=== PATIENT | female | born 1945 | race Caucasian/White ===

== ENCOUNTER → 2018-03-23 14:52 | Outpatient (CLI) | payer MEDICARE, OTHER, SELFPAY ==
--- NOTE | 2018-03-23 | DI.RAD.S_ITS ---
PROCEDURE: XR LUMBAR SPINE 2-3V INDICATIONS: LOW BACK PAIN TECHNIQUE: 3 views of the lumbar spine were acquired. COMPARISON: [facility], , L-SPINE 2-3 VIEWS, 07/12/2015, 3:00. FINDINGS: Bones: 5 [id number] vertebrae are present. There is multilevel trace retrolisthesis throughout the bar spine. Multilevel mild to moderate disc space narrowing is present, appearing severe at L5-S1. Significant foraminal narrowing is present at L5-S1, slowly progressive compared to prior exam.. No vertebral body compression fractures. No suspicious bony lesions. Soft tissues: Overlying bowel gas pattern is normal. No suspicious soft tissue calcifications. IMPRESSION: Slightly progressive degenerative changes most notable at L5-S1. Dictated by: Daysi Squires M.D. on 03/23/2018 at 17:00 Approved by: Daysi Squires M.D. on 03/23/2018 at 17:01
== END ==
PROVIDERS: PCP Family Medicine; Visit Provider Family Medicine
DX: M48.07 Spinal stenosis, lumbosacral region (principal); M54.5 Low back pain
CPT/HCPCS: 72100

== ENCOUNTER → 2018-07-07 15:08 | Outpatient (CLI) | payer MEDICARE, OTHER, SELFPAY ==
--- NOTE | 2018-07-07 | DI.MG.S_ITS ---
BILATERAL DIGITAL SCREENING MAMMOGRAM 3D/2D WITH CAD: 07/07/2018 CLINICAL: Routine screening. Comparison is made to exams dated: 06/15/2017 mammogram, 06/13/2016 mammogram, and 05/08/2015 mammogram - [facility]. The tissue of both breasts is heterogeneously dense. This may lower the sensitivity of mammography. Current study was also evaluated with a Computer Aided Detection (CAD) system. No significant masses, calcifications, or other findings are seen in either breast. There has been no significant interval change. IMPRESSION: NEGATIVE There is no mammographic evidence of malignancy. A 1 year screening mammogram is recommended. This exam was interpreted at Station ID: [id number]. NOTE: For mammograms, a report in lay terms will be sent to the patient. Approximately 15% of breast malignancies will not be visualized mammographically. In the management of a palpable breast mass, a negative mammogram must not discourage biopsy of a clinically suspicious lesion. Electronically Signed By: Yan holly/shauna:07/07/2018 16:03:23 letter sent: Normal Exam ACR BI-RADS Category 1: Negative 3341F
== END ==
PROVIDERS: PCP Family Medicine; Visit Provider Family Medicine
DX: Z12.31 Encounter for screening mammogram for malignant neoplasm of breast (principal)
CPT/HCPCS: 77063; 77067

== ENCOUNTER → 2019-07-12 10:05 | Outpatient (CLI) | payer MEDICARE, OTHER, SELFPAY ==
--- NOTE | 2019-07-12 | DI.MG.S_ITS ---
BILATERAL DIGITAL SCREENING MAMMOGRAM 3D/2D WITH CAD: 07/12/2019 CLINICAL: Routine screening. Comparison is made to exams dated: 07/07/2018 mammogram, 06/15/2017 mammogram, 06/13/2016 mammogram, 05/08/2015 mammogram, and 05/05/2014 mammogram - [facility]. The tissue of both breasts is heterogeneously dense. This may lower the sensitivity of mammography. Current study was also evaluated with a Computer Aided Detection (CAD) system. No significant masses, calcifications, or other findings are seen in either breast. There has been no significant interval change. IMPRESSION: NEGATIVE There is no mammographic evidence of malignancy. A 1 year screening mammogram is recommended. This exam was interpreted at Station ID: [id number]. NOTE: For mammograms, a report in lay terms will be sent to the patient. Approximately 15% of breast malignancies will not be visualized mammographically. In the management of a palpable breast mass, a negative mammogram must not discourage biopsy of a clinically suspicious lesion. Electronically Signed By: Carlos vidal/shauna:07/15/2019 08:26:02 letter sent: Normal Exam ACR BI-RADS Category 1: Negative 3341F
== END ==
PROVIDERS: PCP Family Medicine; Visit Provider Family Medicine
DX: Z12.31 Encounter for screening mammogram for malignant neoplasm of breast (principal); M85.851 Other specified disorders of bone density and structure, right thigh; Z78.0 Asymptomatic menopausal state; E07.9 Disorder of thyroid, unspecified; Z87.891 Personal history of nicotine dependence
CPT/HCPCS: 77063; 77067; 77080

== ENCOUNTER → 2019-11-07 13:41 | Outpatient (CLI) | payer MEDICARE, OTHER, SELFPAY ==
[2019-11-07 14:40] LABS: Add Manual Diff / Slide Review NO; Basophils Absolute Auto 100 /uL (0-100); Basophils Percent Auto 0.8 % (0-2); Eosinophils Absolute Auto 100 /uL (0-450); Eosinophils Percent Auto 2.1 % (2-4); Hemoglobin 13.2 g/dL (12.0-16.0); Lymphocytes Absolute Auto 2200 /uL (1100-4500); Lymphocytes Percent Auto 34.3 % (25-40); Mean Corpuscular HGB Conc 33.1 % (30-36); Mean Corpuscular Hemoglobin 29.4 PG (26-34); Mean Corpuscular Volume 88.8 fL (80-100); Monocytes Absolute Auto 500 /uL (0-900); Monocytes Percent Auto 7.8 % (3-14); Neutrophils Absolute Auto 3500 /uL (1500-7000); Platelet Count 191 X10^3/uL (150-400); Red Cell Distribution Width 13.8 % (11.6-14.8); White Blood Cell Count 6.3 X10^3/uL (4.5-11.0)
[2019-11-07 14:59] LABS: Alanine Aminotransferase 21 IU/L (<35); Albumin 4.2 g/dL (3.5-5.0); Albumin Globulin Ratio 1.5 (1.0-2.8); Alkaline Phosphatase 78 U/L (38-126); Aspartate Aminotransferase 31 IU/L (14-36); BUN Creatinine Ratio 19.6 (6-22); Bilirubin Total 0.5 mg/dL (0.2-1.3); Blood Urea Nitrogen 19 mg/dL (7-17); Calcium 9.1 mg/dL (8.4-10.2); Carbon Dioxide 27 mmol/L (22-32); Chloride 108 mmol/L (98-107); Estimated Glomerular Filt Rate 56.1 mL/min (>60); Globulin 2.8 g/dL (1.7-4.1); Glucose 110 mg/dL (80-110); HEMOLYSIS < 15 (0-50); Potassium 4.5 mmol/L (3.4-5.1); Sodium 142 mmol/L (137-145)
[2019-11-07 15:02] LABS: Erythrocyte Sedimentation Rate 6 MM/HR (0-20)
[2019-11-07 15:11] LABS: C-Reactive Protein Quant < 0.5 mg/dL (<1.0)
== END ==
PROVIDERS: PCP Family Medicine; Referring Provider Ophthalmology; Visit Provider Ophthalmology
DX: M31.6 Other giant cell arteritis (principal); H57.12 Ocular pain, left eye
CPT/HCPCS: 36415; 80053; 84443; 85025; 85651; 86140

== ENCOUNTER → 2019-12-04 16:15 | Outpatient (CLI) | payer MEDICARE, OTHER, SELFPAY ==
[2019-12-05 02:35] LABS: COVID19 Sendout Not Detected (Not Detect)
== END ==
PROVIDERS: PCP Family Medicine; Visit Provider Physician Assistant
DX: Z01.818 Encounter for other preprocedural examination (principal)
CPT/HCPCS: 87635

== ENCOUNTER 2019-12-07 08:25 | Day surgery (SDC) | payer MEDICARE, OTHER, SELFPAY ==
--- NOTE | 2019-12-06 18:02 | PM.PREOP ---
Pre-operative Note Interval Note History & Physical reviewed/Exam performed by Physician: Yes Changes to H&P: No H&P completed within 30 days and has changed as indicated here:: Covid 19 testing negative within 72 hours of surgery
--- NOTE | 2019-12-06 18:03 | P.OP_ITS ---
Operative Date/Time/Diagnoses Date of procedure: 12/07/19 Time of procedure: 09:45 Procedure & Clinicians Procedure: Preoperative diagnoses: 1. Left complex surgery with use of capsular dye. 2. Mature or advanced nuclear sclerotic and cortical cataract with poor visibility of the anterior capsule increasing surgical risks of complications. 3. Glaucoma on multiple medications. 4. Planopilaris 5. Vertigo 6. Psoriasis 7. Status post blepharoplasty Postoperative diagnoses: 1. Left complex surgery with use of capsular dye. 2. Placement of a posterior chamber intraocular lens implant. Surgeon: Lucille Law MD Complications: none Specimen: None Implant: ZCBOO+17.0 Blood loss: None Anesthesia: Retrobulbar with monitored standby. Description of procedure: Dictated by: Lucille Law MD Copy to: [facility] Post operative diagnoses: 1. Left complex cataract removed with use of capsular dye with placement of a posterior chamber intraocular lens. Procedure: Phacoemulsification with posterior chamber intraocular lens implant Surgeon: Lucille Law MD Blood loss: None Anesthesia: Retrobulbar with monitored standby Description of procedure: Patient has presented with decreased vision due to cataract which is affecting activities of daily living. She has advanced cataract with surgery delayed due to the Covid 19 epidemic. She has stable glaucoma with minimal loss in this eye with significant loss in her other. She has tested covered 19-in the last 72 hours. and has no systemic symptoms. The patient wants surgery to improve vision and understands the increased risk surgery during this time. Complex surgery will be needed with capsular dye and a MiLoop used if needed. The patient was taken to the operating room and given IV sedation. A retrobulbar block consisting of 6 cc of 2% xylocaine without epinephrine mixed half and half with 0.5% Marcaine with 1 cc of hyaluronidase added is placed between the medial and lateral 1/3 of the inferior orbital rim.The eye is manually massaged for 30 sec, prepped using Betadine solution, and draped in the usual sterile fashion. She has had previous blepharoplasty and has a very narrow fissure. Lid speculum placement was optimized as much as possible. Temporal approach was made, a 1 mm side-port incision was performed 90 degrees from the planned corneal wound. Phenylephrine 1.5% mixed with 1% xylocaine 0.2 cc was placed into the anterior chamber. An air bubble was placed and Visudyne dye was placed to improve visibility of the anterior capsule. The dye was irrigated out to reduce bubbles. Viscoat followed by Taz was then placed. A 2.6 mm clear incision with a 2.6 mm blade was placed. A 360 degree capsulorrhexis style capsulotomy was then performed with a cystitome needle on a Healon. Hydrodelineation and hydrodissection were performed. No MiLoop was required, patient was somewhat anxious however during procedure seeing she felt like there were answered crawling on her. Small amount of propofol was given to relieve her anxiety. The phacoemulsification unit was used to groove the central lens .It is then removed in chopping mode. Epi nucleus is removed with epinuclear mode and irrigation aspiration was used to remove the peripheral cortex. The posterior capsule is polished. The intraocular lens is selected, inspected, power confirmed, and placed in the posterior chamber. The pupil was constricted with Miostat. The wound was stromally hydrated and tested for leaks, there was none and was left sutureless. Vigamox 0.1 cc was placed into the anterior chamber. No Kenalog 0.2 cc was placed in the superior subconjunc tival space due to advanced glaucoma. A drop of antibiotic and was placed and the eye was patched and shielded. The patient was stable and returned to the recovery room in excellent condition. Dictated by: Lucille Law MD Copy to: [facility] Same procedure as scheduled: Yes
[2019-12-07] MEDS: PROPARACAINE 0.5% OPHTH SOL 2 DROPS EYE-OP (09:26)
[2019-12-07] MEDS: CATARACT EYE COMPOUND (10 DROPS/SYRINGE) 3 DROPS EYE-OP (09:26)
[2019-12-07 09:35] VITALS: BP 144/71; PULSE 54; RESP 16; TEMP 36.1; O2SAT 98; BMI 23.2
[2019-12-07] MEDS: HYALURONATE SODIUM 10 MG/ML SYRINGE INJ (10:21)
[2019-12-07] MEDS: ERYTHROMYCIN OPHTH 1 GM OINT 1 APPLIC EYE-LEFT (10:21)
[2019-12-07] MEDS: CHONDROIDTIN/SOD HYALURONATE 1.05 ML SYRINGE INTRAOCULA (10:21)
[2019-12-07] MEDS: PHENYLEPHRINE/LIDOCAINE VIAL (OR) 0.2 ML EYE-OP (10:22)
[2019-12-07] MEDS: MOXIFLOXACIN INJ 5 MG/ML VIAL EYE-OP (10:22)
[2019-12-07] MEDS: TRYPAN BLUE 0.5 ML SYRINGE INJ (10:23)
[2019-12-07] MEDS: BALANCED SALT IRRIG SOLN NO.2 500 ML, EPINEPHrine 1 MG IRR (10:23)
[2019-12-07] MEDS: LIDOCAINE 2% 4 ML, BUPIVACAINE 0.5% (PF) 4 ML, HYALURONIDASE 150 UNIT INJ (10:23)
[2019-12-07 10:52] VITALS: BP 135/68; PULSE 51; RESP 12; TEMP 36.6; O2SAT 100
[2019-12-07 11:15] VITALS: BP 144/68; PULSE 49; RESP 14; TEMP 36.6; O2SAT 100
== END 2019-12-07 11:27 | disposition home or self-care (01) ==
LOC: OR 08:28
PROVIDERS: PCP Family Medicine; Referring Provider Ophthalmology; Visit Provider Ophthalmology
PROC: (CPT 66982; principal; 2019-12-07 09:45)
DX: H25.812 Combined forms of age-related cataract, left eye (principal); H40.9 Unspecified glaucoma; R42 Dizziness and giddiness
CPT/HCPCS: 66982; J0171; J2250; J2704; J3470

== ENCOUNTER → 2020-09-20 13:58 | Outpatient (CLI) | payer MEDICARE, OTHER, SELFPAY ==
[2020-09-20] MEDS: COVID-19 VACC, Ad26(JANSSEN)/PF 0.5 ML IM (14:24)
== END ==
PROVIDERS: PCP Family Medicine; Visit Provider Internal Medicine
DX: Z23 Encounter for immunization (principal)
CPT/HCPCS: 0031A; 91303

== ENCOUNTER → 2021-06-17 14:53 | Outpatient (CLI) | payer MEDICARE, OTHER, SELFPAY ==
--- NOTE | 2021-06-17 | DI.MG.S_ITS ---
BILATERAL DIGITAL SCREENING MAMMOGRAM 3D/2D WITH CAD: 06/17/2021 CLINICAL: Routine screening. Comparison is made to exams dated: 07/12/2019 mammogram, 07/07/2018 mammogram, and 06/15/2017 mammogram - [facility]. The tissue of both breasts is heterogeneously dense. This may lower the sensitivity of mammography. Current study was also evaluated with a Computer Aided Detection (CAD) system. There are calcifications in the right breast. No significant masses, calcifications, or other findings are seen in either breast. There has been no significant interval change. IMPRESSION: BENIGN There is no mammographic evidence of malignancy. A 1 year screening mammogram is recommended. This exam was interpreted at Station ID: [id number]. NOTE: For mammograms, a report in lay terms will be sent to the patient. Approximately 15% of breast malignancies will not be visualized mammographically. In the management of a palpable breast mass, a negative mammogram must not discourage biopsy of a clinically suspicious lesion. Electronically Signed By: Raj Hawley M.D. at/:06/17/2021 16:38:12 letter sent: Normal Exam ACR BI-RADS Category 2: Benign Finding(s) 3342F
== END ==
PROVIDERS: PCP Family Medicine; Referring Provider Family Medicine; Visit Provider Family Medicine
DX: Z12.31 Encounter for screening mammogram for malignant neoplasm of breast (principal)
CPT/HCPCS: 77063; 77067

== ENCOUNTER → 2022-02-26 10:46 | Outpatient (CLI) | payer MEDICARE, OTHER, SELFPAY ==
--- NOTE | 2022-02-26 | DI.RAD.S_ITS ---
PROCEDURE: XR CERVICAL SPINE 4V OR 5V INDICATIONS: NECK PAIN TECHNIQUE: 5 views of the cervical spine were acquired. COMPARISON: None. FINDINGS: Bones: Reversal of the normal cervical lordosis may be related to muscle spasm. Degenerative disc space narrowing and hypertrophic facet joints noted in the mid cervical spine flexion and extension views shows no evidence segmental instability. Normal craniovertebral relationships. Soft tissues: Prevertebral soft tissues are normal in thickness. IMPRESSION: Degenerative disc disease and arthropathy without evidence of segmental instability Approved by: Higinio Salmon M.D. on 02/26/2022 at 12:41
== END ==
PROVIDERS: PCP Family Medicine; Referring Provider Family Medicine; Visit Provider Family Medicine
DX: M47.812 Spondylosis without myelopathy or radiculopathy, cervical region (principal); M50.30 Other cervical disc degeneration, unspecified cervical region
CPT/HCPCS: 72050

== ENCOUNTER → 2022-03-21 11:38 | Outpatient (CLI) | payer MEDICARE, OTHER, SELFPAY | PROVIDERS: PCP Family Medicine; Referring Provider Family Medicine; Visit Provider Family Medicine | DX: M85.89 Other specified disorders of bone density and structure, multiple sites (principal) | CPT/HCPCS: 77080 ==

== ENCOUNTER → 2022-07-09 13:53 | Outpatient (CLI) | payer MEDICARE, OTHER, SELFPAY ==
--- NOTE | 2022-07-09 | DI.MG.S_ITS ---
BILATERAL DIGITAL SCREENING MAMMOGRAM 3D/2D WITH CAD: 07/09/2022 CLINICAL: Routine screening. Comparison is made to exams dated: 06/17/2021 mammogram, 07/12/2019 mammogram, and 07/07/2018 mammogram - [facility]. Both breasts are heterogeneously dense, which may obscure small masses (category c / 51-75% glandular tissue). Current study was also evaluated with a Computer Aided Detection (CAD) system. There are benign calcifications in the right breast. No significant masses, calcifications, or other findings are seen in either breast. There has been no significant interval change. IMPRESSION: BENIGN There is no mammographic evidence of malignancy. A 1 year screening mammogram is recommended. Based on the Tyrer Cuzick model (a risk assessment model) the patient's lifetime risk is 3.7% and her 10 year risk is 0.0%. According to the ACR, ACS, and NCCN guidelines, an annual breast MRI exam along with mammogram is recommended if the patient's lifetime risk is 20% or greater. This exam was interpreted at Station ID: [id number]. NOTE: For mammograms, a report in lay terms will be sent to the patient. Approximately 15% of breast malignancies will not be visualized mammographically. In the management of a palpable breast mass, a negative mammogram must not discourage biopsy of a clinically suspicious lesion. Electronically Signed By: Rayo Conrad M.D., jr/shauna:07/09/2022 15:53:01 letter sent: Normal Exam ACR BI-RADS Category 2: Benign Finding(s) 3342F
== END ==
PROVIDERS: PCP Family Medicine; Referring Provider Family Medicine; Visit Provider Family Medicine
DX: Z12.31 Encounter for screening mammogram for malignant neoplasm of breast (principal)
CPT/HCPCS: 77063; 77067

== ENCOUNTER → 2023-02-23 15:10 | Outpatient (CLI) | payer MEDICARE, OTHER, SELFPAY ==
--- NOTE | 2023-02-23 | DI.RAD.S_ITS ---
PROCEDURE: XR WRIST LT MIN 3V INDICATIONS: ground level fall, wrist pain TECHNIQUE: 5 views of the wrist were acquired. COMPARISON: [facility], , XR HAND 3V LEFT, 01/16/2001, 8:29. FINDINGS: Bones: There is subtle transverse sclerosis at the distal radius, which is seen on radiograph dating back to 01/16/2001. No acute fracture or dislocation visualized. No suspicious bony lesions. Scaphoid view: Intact Soft tissues: No suspicious soft tissue calcifications. IMPRESSION: No acute osseous abnormality. If pain persists with conservative management, recommend repeat plain films in 7-10 days or consider cross-sectional imaging. Approved by: Linsey Menard M.D. on 02/23/2023 at 23:43
== END ==
PROVIDERS: PCP Family Medicine; Referring Provider Registered Nurse; Visit Provider Registered Nurse
DX: M25.532 Pain in left wrist (principal); M85.80 Other specified disorders of bone density and structure, unspecified site
CPT/HCPCS: 73110

== ENCOUNTER → 2023-07-10 11:06 | Outpatient (CLI) | payer MEDICARE, OTHER, SELFPAY ==
--- NOTE | 2023-07-10 | DI.MG.S_ITS ---
BILATERAL DIGITAL SCREENING MAMMOGRAM 3D/2D WITH CAD: 07/10/2023 CLINICAL: Routine screening. Comparison is made to exams dated: 07/09/2022 mammogram, 06/17/2021 mammogram, and 07/12/2019 mammogram - [facility]. Both breasts are heterogeneously dense, which may obscure small masses (category c / 51-75% glandular tissue). Current study was also evaluated with a Computer Aided Detection (CAD) system. There is an asymmetry in the left breast middle depth medial region seen on the craniocaudal view only. This is more prominent. No other significant masses, calcifications, or other findings are seen in either breast. IMPRESSION: INCOMPLETE: NEEDS ADDITIONAL IMAGING EVALUATION The asymmetry in the left breast is indeterminate. Additional views with possible ultrasound are recommended. Based on the Tyrer Cuzick model (a risk assessment model) the patient's lifetime risk is 3.3% and her 10 year risk is 0.0%. According to the ACR, ACS, and NCCN guidelines, an annual breast MRI exam along with mammogram is recommended if the patient's lifetime risk is 20% or greater. This exam was interpreted at Station ID: [id number]. NOTE: For mammograms, a report in lay terms will be sent to the patient. Approximately 15% of breast malignancies will not be visualized mammographically. In the management of a palpable breast mass, a negative mammogram must not discourage biopsy of a clinically suspicious lesion. Electronically Signed By: Ez Garrett M.D. lc/:07/10/2023 13:00:17 letter sent: Additional Imaging Needed ACR BI-RADS Category 0: Incomplete 3340F
== END ==
LOC: MAMMO 11:07
PROVIDERS: PCP Family Medicine; Referring Provider Family Medicine; Visit Provider Family Medicine
DX: Z12.31 Encounter for screening mammogram for malignant neoplasm of breast (principal)
CPT/HCPCS: 77063; 77067

== ENCOUNTER → 2023-07-31 10:03 | Outpatient (CLI) | payer MEDICARE, OTHER, SELFPAY ==
--- NOTE | 2023-07-31 10:05 | DI.MG.S_ITS ---
UNILATERAL LEFT DIGITAL DIAGNOSTIC MAMMOGRAM 3D/2D WITH ADDITIONAL VIEWS: 07/31/2023 CLINICAL: Additional evaluation requested from prior study. Comparison is made to exams dated: 07/10/2023 mammogram, 07/09/2022 mammogram, and 06/17/2021 mammogram - [facility]. The left breast is heterogeneously dense, which may obscure small masses (category c / 51-75% glandular tissue). The previously described asymmetry in the left breast middle depth medial region seen on the craniocaudal view only is no longer seen. This is not confirmed in today's additional views and is consistent with summation artifact. No other significant masses or calcifications are seen in the breast. IMPRESSION: INCOMPLETE: NEEDS ADDITIONAL IMAGING EVALUATION An ultrasound is recommended to confirm the no longer seen asymmetry in the left breast middle depth medial region seen on the craniocaudal view only. This is scheduled to follow immediately after this exam. Based on the Tyrer Cuzick model (a risk assessment model) the patient's lifetime risk is 3.0% and her 10 year risk is 0.0%. According to the ACR, ACS, and NCCN guidelines, an annual breast MRI exam along with mammogram is recommended if the patient's lifetime risk is 20% or greater. This exam was interpreted at Station ID: [id number]. NOTE: For mammograms, a report in lay terms will be sent to the patient. Approximately 15% of breast malignancies will not be visualized mammographically. In the management of a palpable breast mass, a negative mammogram must not discourage biopsy of a clinically suspicious lesion. Electronically Signed By: Raj Hawley M.D. aty/:07/31/2023 11:31:58 ACR BI-RADS Category 0: Incomplete 3340F
--- NOTE | 2023-07-31 10:05 | DI.US.S_ITS ---
ULTRASOUND OF LEFT BREAST: 07/31/2023 CLINICAL: Patient returns today to evaluate a focal asymmetry in the left breast. Comparison is made to exams dated: 07/31/2023 mammogram, 07/10/2023 mammogram, 07/09/2022 mammogram, and 06/17/2021 mammogram - [facility]. Color flow and real-time ultrasound of the left breast were performed. Junior scale images of the real-time examination were reviewed. No significant abnormalities were seen sonographically in the left breast. IMPRESSION: NEGATIVE There is no sonographic evidence of malignancy. There is no abnormality seen in the left breast to correspond with the mammography finding which likely represents normal fibroglandular tissue. A 1 year screening mammogram is recommended. Findings and recommendations were conveyed to the patient during today's evaluation. This exam was interpreted at Station ID: [id number]. Electronically Signed By: aRj Hawley M.D. aty/:07/31/2023 11:33:25 letter sent: Normal Exam Ultrasound BI-RADS: 1 Negative
== END ==
LOC: MAMMO 10:04
PROVIDERS: PCP Family Medicine; Referring Provider Family Medicine; Visit Provider Family Medicine
DX: R92.8 Other abnormal and inconclusive findings on diagnostic imaging of breast (principal); R92.333 Mammographic heterogeneous density, bilateral breasts
CPT/HCPCS: 76642; 77065; G0279

== ENCOUNTER → 2024-01-30 11:49 | Outpatient (CLI) | payer MEDICARE, OTHER, SELFPAY | PROVIDERS: PCP Family Medicine; Visit Provider Physician Assistant | DX: S89.90XA Unspecified injury of unspecified lower leg, initial encounter (principal); T14.8XXA Other injury of unspecified body region, initial encounter; L08.9 Local infection of the skin and subcutaneous tissue, unspecified | CPT/HCPCS: 87070; 87075; 87077; 87147; 87205 ==

== ENCOUNTER → 2024-01-30 12:19 | Outpatient (CLI) | payer MEDICARE, OTHER, SELFPAY ==
--- NOTE | 2024-01-30 12:21 | DI.RAD.S_ITS ---
PROCEDURE: XR TIBIA FUBULA RT 2V INDICATIONS: fall onto metal walker across shins TECHNIQUE: 2 views of the tibia and fibula were acquired. COMPARISON: None. FINDINGS: Bones: No fractures or dislocations. No suspicious bony lesions. Soft tissues: No suspicious soft tissue calcifications or masses. IMPRESSION: No acute bony abnormality. If there is persistent clinical concern for occult fracture given adequate mechanism of injury, consider repeat imaging in 10-14 days. Dictated by: Raj Hawley M.D. on 01/30/2024 at 22:38 Approved by: Raj Hawley M.D. on 01/30/2024 at 22:38
--- NOTE | 2024-01-30 12:21 | DI.RAD.S_ITS ---
PROCEDURE: XR TIBIA FIBULA LT 2V INDICATIONS: fall onto metal walker across shins TECHNIQUE: 2 views of the tibia and fibula were acquired. COMPARISON: None. FINDINGS: Bones: No fractures or dislocations. No suspicious bony lesions. Soft tissues: No suspicious soft tissue calcifications or masses. IMPRESSION: Left tibia/fibula without acute fracture or dislocation. If there is persistent clinical concern for occult fracture given adequate mechanism of injury, consider repeat imaging in 10-14 days. Dictated by: Raj Hawley M.D. on 01/30/2024 at 22:37 Approved by: Raj Hawley M.D. on 01/30/2024 at 22:38
== END ==
LOC: RAD 12:21
PROVIDERS: PCP Family Medicine; Referring Provider Physician Assistant; Visit Provider Physician Assistant
DX: S89.90XA Unspecified injury of unspecified lower leg, initial encounter (principal); T14.8XXA Other injury of unspecified body region, initial encounter; L08.9 Local infection of the skin and subcutaneous tissue, unspecified; W19.XXXA Unspecified fall, initial encounter
CPT/HCPCS: 73590; 87070; 87077; 87147; 87205

== ENCOUNTER 2024-02-23 17:37 | Emergency (ER) | payer MEDICARE, OTHER, SELFPAY ==
[2024-02-23 17:53] VITALS: BP 158/72; PULSE 82; RESP 17; TEMP 37.1; O2SAT 96; BMI 21.9
--- NOTE | 2024-02-23 19:08 | ED_ITS ---
HPI - Extremity Problem General Chief complaint: Extremity Problem,Nontraumatic Stated complaint: sent by MD for US of rt leg Time Seen by Provider: 02/23/24 18:02 Source: patient, RN notes reviewed and old records reviewed Mode of arrival: Ambulatory Limitations: no limitations History of Present Illness HPI Narrative: 78-year-old female history of hypertension, dyslipidemia hypothyroidism who had recent infection in her left lower extremity was initially on cephalexin but change to what she says as azithromycin for MRSA positive culture but unclear if this is the correct antibiotic. She states she was taking it multiple times a day. I do not have access to the notes that she they changed it to. Patient states her leg did not improve and she has since developed redness and swelling of her right lower extremity with a lesion in the center that looks like it had some bruising underneath. Looks very similar to the opposite leg according to the patient. She has had no fevers, no chest pain or shortness of breath, no nausea or vomiting, no GI symptoms. She has noted some increased urinary frequency.. She states it feels tight and painful. No numbness tingling or weakness. She states allergic to penicillin and tetracyclines. Patient is former smoker, occasional alcohol, no recreational drugs. Dr. Krause is her primary care physician. Related Data Home Medications Medication Instructions Recorded Confirmed amlodipine 5 mg tablet 5 mg PO DAILY 01/30/24 01/30/24 levothyroxine 88 mcg tablet 88 mcg PO DAILY 01/30/24 01/30/24 (Synthroid) Previous Rx's Medication Instructions Recorded atorvastatin 20 mg tablet (Lipitor) 20 mg PO HS #90 tabs 10/07/17 levothyroxine 75 mcg tablet 0.075 mg PO QAM #90 tabs 10/07/17 (Synthroid) mupirocin 2 % topical ointment 1 applic topical TID #30 grams 01/30/24 sulfamethoxazole 800 1 tab PO Q12H #14 tabs 02/23/24 mg-trimethoprim 160 mg tablet (Bactrim DS) Allergies Allergy/AdvReac Type Severity Reaction Status Date / Time Penicillins [PENICILLINS] Allergy Mild ANGIOEDEMA Verified 02/23/24 17:56 Tetracyclines [TETRACYCLINES] Allergy Mild ANGIOEDEMA Verified 02/23/24 17:56 Review of Systems Review of Systems ROS Unobtainable: All systems reviewed & are unremarkable except as noted in HPI and below Patient History Surgical History Status post dilation and curettage Status post tubal ligation Status post cholecystectomy Status post colonoscopy Family History Sister Hypertension High cholesterol Social History household members: spouse Smoking Status: Former smoker alcohol intake: former Smoking Status: Former smoker alcohol intake frequency: holidays/special occasions only Substance Use Type: does not use Exam Narrative Exam Narrative: GENERAL: Alert and oriented x three, well-appearing female in mild distress. HEENT: Head normocephalic, atraumatic, EOMI, pupils reactive, face symmetric, moist mucous membranes NECK: Supple, full range of motion CARDIOVASCULAR: Regular rate and rhythm without murmurs, rubs or gallops. RESPIRATORY: Breath sounds equal bilaterally, no wheezes rales or rhonchi. ABDOMEN: Soft, nontender. Normoactive bowel sounds all 4 quadrants. No guarding or rebound, rigidity, no mass : No CVA tenderness EXTREMITIES: Normal range of motion, no clubbing. Patient has erythema of the calf surrounding with area of ulceration and slightly gapped, there is some slight swelling and induration but no drainage. There is no foul odor. Patient has cap refill less than 2 seconds bilateral feet. She has full range of motion. She is able to ambulate without issue.. Neurovascularly intact NEUROLOGICAL: Cranial nerves II through XII grossly intact. Moving all extremities SKIN: Warm, dry, no petechiae, no rashes or lesions. Initial Vital Signs Initial Vital Signs: Vital Signs Temperature 98.7 F 02/23/24 17:53 Pulse Rate 82 02/23/24 17:53 Respiratory Rate 17 02/23/24 17:53 Blood Pressure 158/72 H 02/23/24 17:53 Pulse Oximetry 96 02/23/24 17:53 Oxygen Delivery Method Room Air 02/23/24 17:53 Procedures Abscess I/D I&D #1: Site: lower extremity (right anterior richardson) Side (if applicable): right Sedation/analgesia: midazolam and none Local Anesthetic: lidocaine 2% Amount of anesthesia used (mL): 2.5 Technique: needle aspiration and incised with #11 blade Amount of fluid expressed (mL): 4 Irrigation: Yes Packing used?: none Course Orders Ordered: Discontinued Medications Lidocaine HCl (Lidocaine 2% Inj Sdv 5ml) 10 ml INJ INTRA-OP ONE Stop: 02/23/24 20:45 Last Admin: 02/23/24 20:54 Dose: 10 ml Documented By: ALISSON Trimethoprim/Sulfamethoxazole (Trimeth/Sulfa 160/800 (Ds) Tablet) 1 tab PO NOW ONE Stop: 02/23/24 20:44 Last Admin: 02/23/24 20:54 Dose: 1 tab Documented By: ALISSON Vital Signs Vital signs: Vital Signs - 8 hr 02/23/24 17:53 02/23/24 20:44 Temperature 98.7 F Pulse Rate 82 80 Respiratory Rate 17 17 Blood Pressure 158/72 H 145/67 H Pulse Oximetry 96 95 Oxygen Delivery Method Room Air MDM - Extremity (Nontraumatic) Lab Data Labs: Urine Dip Bedside Urine Glucose Negative Bedside Urine Bilirubin - Negative Bedside Urine Ketone - Negative Urine Specific [place] 1.015 Bedside Urine Occult Blood - Negative Bedside Urine pH 6.0 Bedside Urine Protein - Negative Bedside Urine Urobilinogen - Negative Bedside Urine Nitrite - Negative Bedside Urine Leukocytes - Negative Esterase Imaging Data US - DVT: Radiologist's Impression: [place] [address] Ultrasound Report Signed Patient: Sydni Onofre MR#: [id number] : 1945 Acct:[id number] Age/Sex: 78 / F Date of Service: 02/23/24 Loc: ED Accession Number: [id number] Procedure: US perip venous low extrem rt Ordering Provider: Digna Godinez D.O. PROCEDURE: US PERIP VENOUS LOW EXTREM RT INDICATIONS: r/o dvt. TECHNIQUE: Real-time imaging, as well as color and pulse Doppler interrogation, were performed of the lower extremity deep veins from the inguinal ligament to the popliteal fossa, with documentation of the visualized calf veins. COMPARISON: None. FINDINGS: The common femoral, femoral, popliteal, and the visualized calf veins are normally compressible, and free of intraluminal thrombus. Color and pulse Doppler demonstrate normal phasic intraluminal flow. There is normal augmentation response to distal compression maneuver. Fluid collection or hematoma at the richardson measuring 5.1 x 2.3 x 1.1 cm, estimated volume of 7 cc. IMPRESSION: No findings of lower extremity deep venous thrombosis. Fluid collection or hematoma at the richardson measuring 5.1 cm and approximately 7 cc. Dictated by: Carlos De Dios M.D. on 02/23/2024 at 20:05 Approved by: Carlos De Dios M.D. on 02/23/2024 at 20:07 [facility] Narrative Medical decision making narrative: 78-year-old female with what looks like likely cellulitis but was sent by primary care for ultrasound to rule out DVT. Patient does have circumferential erythema of her right lower extremity greater than left. Appears she likely has a source of infection with wound but we will go ahead and obtain DVT ultrasound which shows Patient has also had frequency that is new no other urinary symptoms but obtained point of care urine. Point of care urine negative DVT ultrasound is negative for DVT does have fluid collection most consistent with hematoma. Patient had culture from her opposite leg that showed MRSA 7 2023 this was reviewed. We will start patient on Bactrim based on prior patient's prior sensitivities and cultures from her opposite leg. Patient has a appropriate renal function. Patient had I&D had a small amount of purulent drainage culture was sent. Discharge Plan Departure Patient Disposition: Home Clinical Impression: Cellulitis and abscess of right leg Instructions: DI for Skin Abscess Activity Restrictions/Additional Instructions: Please follow up at your appointment on with your provider. Take oral antibiotics until completed. Prescription sent to [facility] in [facility]. Wound Care: Keep wound(s) clean and dry. Wash daily with soap and water only. Use warm compresses to the affected area 4 times daily. Do not use over the counter products (alcohol or peroxide)on the wounds unless instructed by a physician. Please return for fevers increasing redness or swelling of your leg, new drainage, increasing pain, chest pain or shortness of breath, persistent vomiti ng or other new or concerning changes. Prescriptions: New sulfamethoxazole-trimethoprim [Bactrim DS] 800-160 mg tablet 1 tab PO Q12H Qty: 14 0RF No Action amlodipine 5 mg tablet 5 mg PO DAILY levothyroxine [Synthroid] 88 mcg tablet 88 mcg PO DAILY mupirocin 2 % ointment 1 applic topical TID Qty: 30 0RF atorvastatin [Lipitor] 20 MG tablet 20 mg PO HS Qty: 90 3RF levothyroxine [Synthroid] 75 MCG tablet 0.075 mg PO QAM Qty: 90 3RF Referrals: Alcides Krause MD [Primary Care Provider] - Stand Alone Forms: Patient Portal/API
--- NOTE | 2024-02-23 19:18 | DI.US.S_ITS ---
PROCEDURE: US PERIPH VENOUS LOW EXTREM RT INDICATIONS: r/o dvt. TECHNIQUE: Real-time imaging, as well as color and pulse Doppler interrogation, were performed of the lower extremity deep veins from the inguinal ligament to the popliteal fossa, with documentation of the visualized calf veins. COMPARISON: None. FINDINGS: The common femoral, femoral, popliteal, and the visualized calf veins are normally compressible, and free of intraluminal thrombus. Color and pulse Doppler demonstrate normal phasic intraluminal flow. There is normal augmentation response to distal compression maneuver. Fluid collection or hematoma at the richardson measuring 5.1 x 2.3 x 1.1 cm, estimated volume of 7 cc. IMPRESSION: No findings of lower extremity deep venous thrombosis. Fluid collection or hematoma at the richardson measuring 5.1 cm and approximately 7 cc. Dictated by: Carlos De Dios M.D. on 02/23/2024 at 20:05 Approved by: Carlos De Dios M.D. on 02/23/2024 at 20:07
--- NOTE | 2024-02-23 19:18 | PC.NURSE ---
left lower leg redness w/ wound. hx of mrsa. pcp concern for dvt
[2024-02-23 20:44] VITALS: BP 145/67; PULSE 80; RESP 17; O2SAT 95
[2024-02-23] MEDS: TRIMETH/SULFA 160/800 (DS) TABLET 1 TAB PO (20:54)
[2024-02-23] MEDS: LIDOCAINE 2% INJ SDV 5ML 10 ML INJ (20:54)
--- NOTE | 2024-02-23 21:05 | PC.NURSE ---
Dressing applied to LLE wound and pt instructed in wound care. Pt verbalized understanding.
== END 2024-02-23 21:07 | disposition home or self-care (01) ==
PROVIDERS: Emergency Provider Emergency Medicine; PCP Family Medicine
DX: L03.115 Cellulitis of right lower limb (principal); L02.415 Cutaneous abscess of right lower limb
CPT/HCPCS: 81003; 87070; 87075; 87205; 93971; 99283

== ENCOUNTER 2024-02-24 17:07 | Inpatient (IN) | payer MEDICARE, OTHER, SELFPAY ==
[2024-02-24] VITALS (33 sets, daily range): BP systolic 90–115; BP diastolic 44–58; PULSE 76–187; RESP 22–34; TEMP 37–38.6; O2SAT 82–100; BMI 21.4; BMI 22.4
[2024-02-24] MEDS: SODIUM CHLORIDE 0.9% 1,000 ML 1000 ML IV ×2 (17:10→18:09)
--- NOTE | 2024-02-24 17:19 | DI.RAD.S_ITS ---
PROCEDURE: XR CHEST 1V INDICATIONS: suspected sepsis TECHNIQUE: One view of the chest was acquired. COMPARISON: None. FINDINGS: Surgical changes and devices: None. Lungs and pleura: Mild left basilar atelectasis versus opacity. No pleural effusions or pneumothorax. Mediastinum: Mediastinal contours appear normal. Heart size is normal. Bones and chest wall: No suspicious bony lesions. Overlying soft tissues appear unremarkable. IMPRESSION: Mild left basilar atelectasis versus opacity. Dictated by: Noah Dean M.D. on 02/24/2024 at 18:22 Approved by: Noah Dean M.D. on 02/24/2024 at 18:23
[2024-02-24 17:28] LABS: Add Manual Diff / Slide Review NO; Basophils Absolute Auto 200 /uL (0-100); Basophils Percent Auto 1.4 % (0-2); Eosinophils Absolute Auto 0 /uL (0-450); Eosinophils Percent Auto 0.1 % (2-4); Hematocrit 35.6 % (36-46); Hemoglobin 11.9 g/dL (12.0-16.0); Lymphocytes Absolute Auto 700 /uL (1100-4500); Lymphocytes Percent Auto 4.5 % (25-40); Mean Corpuscular HGB Conc 33.4 % (30-36); Mean Corpuscular Hemoglobin 29.1 PG (26-34); Mean Corpuscular Volume 87.3 fL (80-100); Monocytes Absolute Auto 800 /uL (0-900); Monocytes Percent Auto 5.4 % (3-14); Neutrophils Absolute Auto 13000 /uL (1500-7000); Neutrophils Percent Auto 88.6 % (50-75); Platelet Count 185 X10^3/uL (150-400); Red Blood Cell Count 4.07 X10^6/uL (4.0-5.2); Red Cell Distribution Width 15.5 % (11.6-14.8); White Blood Cell Count 14.6 X10^3/uL (4.5-11.0)
[2024-02-24 17:30] LABS: INR 1.1 (0.9-1.3); Prothrombin Time 12.5 SECONDS (9.4-12.5)
--- NOTE | 2024-02-24 17:31 | EKG_ITS ---
[address] [address] Test Date: 2024-02-24 Pat Name: Sydni Onofre Department: [facility] Room: Gender: Female Hosted Services Analyst: ELOY : 1945 Requested By: Order Number: [id number] Reading MD: Carson Moran MD Measurements Intervals [place] Rate: 85 P: 35 IA: 152 QRS: 59 QRSD: 78 T: 35 QT: 400 QTc: 476 Interpretive Statements Normal sinus rhythm Electronically Signed On 02-25-2024 7:38:31 PDT by Carson Moran MD
[2024-02-24 17:33] LABS: PTT Partial Thromboplastin Tim 28 SECONDS (25.1-36.5)
[2024-02-24 17:34] LABS: Alanine Aminotransferase 29 IU/L (<35); Albumin 3.7 g/dL (3.5-5.0); Albumin Globulin Ratio 1.2 (1.0-2.8); Alkaline Phosphatase 77 U/L (38-126); Aspartate Aminotransferase 31 IU/L (14-36); BUN Creatinine Ratio 15.8 (6-22); Bilirubin Total 0.8 mg/dL (0.2-1.3); Blood Urea Nitrogen 18 mg/dL (7-17); Calcium 8.2 mg/dL (8.4-10.2); Carbon Dioxide 22 mmol/L (22-32); Chloride 103 mmol/L (98-107); Estimated Glomerular Filt Rate 49 mL/min (>60); Globulin 3.1 g/dL (1.7-4.1); Glucose 113 mg/dL (80-110); HEMOLYSIS < 15 (0-50); Lipase 81 U/L (23-300); Potassium 3.7 mmol/L (3.4-5.1); Sodium 133 mmol/L (137-145); Total Protein 6.8 g/dL (6.3-8.2)
[2024-02-24 17:51] LABS: Procalcitonin 0.365 ng/mL (<0.5)
[2024-02-24] MEDS: VANCOMYCIN 1,000 MG/200 ML PIGGYBACK 200 MG IV (18:07)
[2024-02-24 18:13] LABS: Influenza A - CEPHEID Flu A NEGATIVE (NEGATIVE); Influenza B - CEPHEID Flu B NEGATIVE (NEGATIVE); Respiratory Syncytial Virus Negative (Negative)
[2024-02-24 18:16] LABS: COVID-19 CEPHEID 4-PLEX PCR Negative (Negative)
--- NOTE | 2024-02-24 19:02 | ED_ITS ---
HPI - General Adult General Chief complaint: Weakness Stated complaint: DX Cellulitis yest. Increase weakness, fever Time Seen by Provider: 02/24/24 18:55 Source: patient, EMS and RN notes reviewed Mode of arrival: EMS Limitations: no limitations History of Present Illness HPI narrative: 76-year-old male history of hypertension, dyslipidemia, hypothyroidism who had recent infection in her left lower extremity patient was seen last night after having developed redness and swelling and an area of what looks like hematoma or ulceration on her anterior richardosn on the right. Patient has been sent to have evaluation for DVT which was negative and was started on oral antibiotics last night. Patient presents with complaint of chills overnight increasing weakness and fevers at home. No chest pain or shortness of breath, no nausea or vomiting. No abdominal back or flank pain, denies any urinary symptoms. Patient states her leg as less painful after the abscess drainage but she still has quite a bit of erythema and on examination appears to have spread. She has had 2 doses of Bactrim 1 last night and 1 this morning. Patient states no other new changes. She does have allergies to penicillin and tetracycline. Former smoker, occasional alcohol, no recreational drugs. Dr. Krause is her primary care physician. Related Data Home Medications Medication Instructions Recorded Confirmed amlodipine 5 mg tablet 5 mg PO DAILY 01/30/24 01/30/24 levothyroxine 88 mcg tablet 88 mcg PO DAILY 01/30/24 01/30/24 (Synthroid) Previous Rx's Medication Instructions Recorded atorvastatin 20 mg tablet (Lipitor) 20 mg PO HS #90 tabs 10/07/17 levothyroxine 75 mcg tablet 0.075 mg PO QAM #90 tabs 10/07/17 (Synthroid) mupirocin 2 % topical ointment 1 applic topical TID #30 grams 01/30/24 sulfamethoxazole 800 1 tab PO Q12H #14 tabs 02/23/24 mg-trimethoprim 160 mg tablet (Bactrim DS) Allergies Allergy/AdvReac Type Severity Reaction Status Date / Time Penicillins [PENICILLINS] Allergy Mild ANGIOEDEMA Verified 02/24/24 17:14 Tetracyclines [TETRACYCLINES] Allergy Mild ANGIOEDEMA Verified 02/24/24 17:14 Review of Systems Review of Systems ROS Unobtainable: All systems reviewed & are unremarkable except as noted in HPI and below Patient History Surgical History Status post dilation and curettage Status post tubal ligation Status post cholecystectomy Status post colonoscopy Family History Sister Hypertension High cholesterol Social History household members: spouse Smoking Status: Former smoker alcohol intake: former Smoking Status: Former smoker alcohol intake frequency: holidays/special occasions only Substance Use Type: does not use Exam Narrative Exam Narrative: GENERAL: Alert and oriented x three, elderly female in mild distress. Patient feels slightly warm to the touch. HEENT: Head normocephalic, atraumatic, EOMI, pupils reactive, face symmetric, moist mucous membranes NECK: Supple, full range of motion CARDIOVASCULAR: Regular rate and rhythm without murmurs, rubs or gallops. JVD. RESPIRATORY: Breath sounds equal bilaterally, no wheezes rales or rhonchi. No tachypnea accessory muscle use ABDOMEN: Soft, nontender. Normoactive bowel sounds all 4 quadrants. No guarding or rebound, rigidity, no mass : No CVA tenderness EXTREMITIES: Normal range of motion, patient has edema of the right lower extremity it is very warm compared to the left. Her area of drainage from her abscess has very minimal to scant drainage. She states it feels improved I erythema appears to be extended farther up the leg and over the dorsum of her foot from her visit last night when I saw her last.. Neurovascularly intact NEUROLOGICAL: Cranial nerves II through XII grossly intact. Moving all extremities SKIN: Warm, dry, no petechiae, no rashes or lesions other than to healing ulcers on her left anterior richardson which are clean dry and intact and do not appear infected. Initial Vital Signs Initial Vital Signs: Vital Signs Temperature 98.6 F 02/24/24 17:07 Pulse Rate 85 02/24/24 17:07 Respiratory Rate 26 H 02/24/24 17:07 Blood Pressure 115/58 L 02/24/24 17:07 Pulse Oximetry 99 02/24/24 17:07 Oxygen Delivery Method Room Air 02/24/24 17:07 Course Orders Ordered: ED Orders 02/24/24 17:00 Complete Blood Count AUTO DIFF Stat Comprehensive Metabolic Panel Stat Lactate (Lactic Acid) Stat Lipase Stat PTT Partial Thromboplastin Jayesh Stat Procalcitonin Stat Prothrombin Time INR Stat 02/24/24 17:19 XR chest 1V Stat EKG-12 Lead Stat RT Consult Eval and Treat NOW 02/24/24 17:26 Covid-19 + FLU A/B + RSV - PCR Stat 02/24/24 17:31 Blood Culture Stat Acetaminophen (Acetaminophen 325 Mg Tablet) 650 mg PO Q6H PRN PRN Reason: Fever/Mild Pain (1-3) Al Hydrox/Mg Hydrox/Simethicone (Mag Hydrox/Alum/Simeth 30 Ml Udc) 30 ml PO Q6HR PRN PRN Reason: Dyspepsia Amlodipine Besylate (Amlodipine 5 Mg Tablet) 5 mg PO DAILY [place] Atorvastatin Calcium (Atorvastatin 20 Mg Tablet) 20 mg PO HS PALOMA Enoxaparin Sodium (Enoxaparin 40 Mg/0.4 Ml Syringe) 40 mg SUBCUT DAILY [place] Sodium Chloride (Normal Saline 0.9%) 1,000 mls @ 150 mls/hr IV CONT PALOMA Last Admin: 02/24/24 19:54 Dose: 150 mls/hr Documented By: DOMINIC Sodium Chloride (Normal Saline 0.9%) 1,000 mls @ 100 mls/hr IV CONT PALOMA Levothyroxine Sodium (Levothyroxine 75 Mcg Tablet) 75 mcg PO QAM [place] Magnesium Hydroxide (Magnesium Hydroxide 30 Ml Udc) 30 ml PO DAILY PRN PRN Reason: Constipation Naloxone HCl (Naloxone 0.4 Mg/Ml Vial) 0.2 mg IV Q2MIN PRN PRN Reason: Opiate Reversal Ondansetron HCl (Ondansetron 4 Mg/2 Ml Inj) 4 mg IV NOW PRN PRN Reason: Nausea And Vomiting Ondansetron HCl (Ondansetron 4 Mg Odt) 4 mg SL NOW PRN PRN Reason: Nausea And Vomiting Ondansetron HCl (Ondansetron 4 Mg/2 Ml Inj) 4 mg IV Q8HR PRN PRN Reason: Nausea And Vomiting Vancomycin HCl (Vancomycin Per Pharmacy) 1 request MISC NOW PRN PRN Reason: cellulits Discontinued Medications Sodium Chloride (Normal Saline 0.9%) 1,000 mls @ 1,000 mls/hr IV BOLUS ONE Stop: 02/24/24 18:18 Last Infusion: 02/24/24 17:46 Dose: Infused Documented By: Admin: 02/24/24 17:10 Dose: 1,000 mls/hr Documented By: DOMINIC Sodium Chloride (Normal Saline 0.9%) 1,000 mls @ 1,000 mls/hr IV BOLUS ONE Stop: 02/24/24 18:47 Last Infusion: 02/24/24 19:06 Dose: Infused Documented By: Admin: 02/24/24 18:09 Dose: 1,000 mls/hr Documented By: REBEKAH Vancomycin HCl/Dextrose (Vancomycin) 2,000 mg in 400 mls @ 200 mls/hr IV NOW ONE Stop: 02/24/24 19:53 Last Admin: 02/24/24 18:30 Dose: Not Given Documented By: DOMINIC Vancomycin HCl (Vancomycin) 1,000 mg in 200 mls @ 200 mls/hr IV NOW ONE Stop: 02/24/24 18:54 Last Infusion: 02/24/24 19:06 Dose: Infused Documented By: Admin: 02/24/24 18:07 Dose: 200 mls/hr Documented By: REBEKAH Sodium Chloride (Normal Saline 0.9%) 500 mls @ 1,000 mls/hr IV BOLUS ONE Stop: 02/24/24 20:02 Last Infusion: 02/24/24 20:16 Dose: Infused Documented By: Admin: 02/24/24 19:42 Dose: 1,000 mls/hr Documented By: DOMINIC Vital Signs Vital signs: Vital Signs - 8 hr 02/24/24 17:07 02/24/24 17:10 02/24/24 17:11 Temperature 98.6 F Pulse Rate 85 187 H 87 Respiratory Rate 26 H 33 H 34 H Blood Pressure 115/58 L Pulse Oximetry 99 97 Oxygen Delivery Method Room Air 02/24/24 17:11 02/24/24 17:15 02/24/24 17:30 Temperature Pulse Rate 80 86 Respiratory Rate 27 H 30 H Blood Pressure 115/58 L Pulse Oximetry 99 82 L Oxygen Delivery Method Room Air 02/24/24 17:36 02/24/24 17:36 02/24/24 17:39 Temperature Pulse Rate 85 Respiratory Rate 28 H Blood Pressure 91/49 L 92/53 L Pulse Oximetry 97 Oxygen Delivery Method 02/24/24 17:39 02/24/24 17:40 02/24/24 17:40 Temperature Pulse Rate 81 80 Respiratory Rate 27 H 30 H Blood Pressure 94/47 L Pulse Oximetry 99 99 Oxygen Delivery Method 02/24/24 17:42 02/24/24 17:42 02/24/24 17:45 Temperature Pulse Rate 81 81 Respiratory Rate 30 H 23 Blood Pressure 95/46 L Pulse Oximetry 100 97 Oxygen Delivery Method Room Air 02/24/24 18:00 02/24/24 18:01 02/24/24 18:01 Temperature Pulse Rate 81 83 Respiratory Rate 28 H 30 H Blood Pressure 95/52 L Pulse Oximetry 93 Oxygen Delivery Method 02/24/24 18:15 02/24/24 18:20 02/24/24 18:20 Temperature Pulse Rate 82 80 Respiratory Rate 26 H 30 H Blood Pressure 98/51 L Pulse Oximetry 95 95 Oxygen Delivery Method Room Air 02/24/24 18:30 02/24/24 18:40 02/24/24 18:40 Temperature Pulse Rate 79 76 Respiratory Rate 27 H 28 H Blood Pressure 99/52 L Pulse Oximetry 95 96 Oxygen Delivery Method Room Air Room Air 02/24/24 18:45 02/24/24 19:00 02/24/24 19:00 Temperature Pulse Rate 77 77 Respiratory Rate 28 H 27 H Blood Pressure 108/53 L Pulse Oximetry 94 95 Oxygen Delivery Method Room Air 02/24/24 19:15 02/24/24 19:20 02/24/24 19:20 Temperature Pulse Rate 85 80 Respiratory Rate 28 H 29 H Blood Pressure 93/44 L Pulse Oximetry 95 95 Oxygen Delivery Method Medical Decision Making Lab Data 02/24/24 17:00 02/24/24 17:00 Labs: Lab Results 02/24/24 02/24/24 Range/Units 17:00 17:26 WBC 14.6 H (4.5-11.0) X10^3/uL RBC 4.07 (4.0-5.2) X10^6/uL Hgb 11.9 L (12.0-16.0) g/dL Hct 35.6 L (36-46) % MCV 87.3 (80-100) fL MCH 29.1 (26-34) PG MCHC 33.4 (30-36) % RDW 15.5 H (11.6-14.8) % Plt Count 185 (150-400) X10^3/uL Neut % (Auto) 88.6 H (50-75) % Lymph % (Auto) 4.5 L (25-40) % [place] % (Auto) 5.4 (3-14) % Eos % (Auto) 0.1 L (2-4) % Baso % (Auto) 1.4 (0-2) % Neut # (Auto) 75600 H (1273-1417) /uL Lymph # (Auto) 700 L (4985-6630) /uL [place] # (Auto) 800 (0-900) /uL Eos # (Auto) 0 (0-450) /uL Baso # (Auto) 200 H (0-100) /uL PT 12.5 (9.4-12.5) SECONDS INR 1.1 (0.9-1.3) APTT 28 (25.1-36.5) SECONDS Sodium 133 L (137-145) mmol/L Potassium 3.7 (3.4-5.1) mmol/L Chloride 103 (98-107) mmol/L Carbon Dioxide 22 (22-32) mmol/L BUN 18 H (7-17) mg/dL Creatinine 1.14 H (0.52-1.04) mg/dL Estimated GFR 49 L (>60) mL/min BUN/Creatinine Ratio 15.8 (6-22) Glucose 113 H (80-110) mg/dL Lactate 2.0 (0.7-2.1) mmol/L Calcium 8.2 L (8.4-10.2) mg/dL Total Bilirubin 0.8 (0.2-1.3) mg/dL AST 31 (14-36) IU/L ALT 29 (<35) IU/L Alkaline Phosphatase 77 (38-126) U/L Total Protein 6.8 (6.3-8.2) g/dL Albumin 3.7 (3.5-5.0) g/dL Globulin 3.1 (1.7-4.1) g/dL Albumin/Globulin Ratio 1.2 (1.0-2.8) Lipase 81 (23-300) U/L Procalcitonin 0.365 (<0.5) ng/mL SARS-CoV-2 (PCR) Negative (Negative) Influenza A (RT-PCR) Flu a negative (NEGATIVE) Influenza B (RT-PCR) Flu b negative (NEGATIVE) RSV (PCR) Negative (Negative) MDM Narrative Medical decision making narrative: Labs today show white count of 14.6, hemoglobin 11.9 platelets of 185 predominance of neutrophils, no prior labs since 2019 but at that time patient's hemoglobin was 13. Coags are negative, sodium is 133. Creatinine 3.7, chloride 103 with a CO2 of 22 and a BUN 18 with a creatinine of 1.14 glucose is 113 lactate 2 LFTs are negative. Procalcitonin 0.365. Patient has blood cultures obtained today. Patient does have a wound culture from yesterday shows no cells or organisms on initial Gram stain. Culture is pending. Patient did have abscess yesterday that was drained with a few mL of purulent fluid. Patient had DVT ultrasound which was negative yesterday did show a fluid collection which was drained yesterday by myself. Patient has been slightly tachypneic, hypotensive, no tachycardia but blood pressure is lower than her visit yesterday. Patient meets SIRS criteria for sepsis. Has received 30 cc/kilos bolus, started with antibiotics based on patient's prior culture from the opposite leg. Today's culture has not resulted yet. Patient has received fluid bolus as well as vancomycin. Spoke with Dr. Krause who accepts for inpatient we will put in orders. Discharge Plan Departure Patient Disposition: Admitted As Inpatient Clinical Impression: Cellulitis and abscess of right leg, Sepsis Admit Date/Time: 02/24/24 19:27 Admit Provider: Alcides Krause
[2024-02-24] MEDS: SODIUM CHLORIDE 0.9% 500 ML 1000 ML IV (19:42)
[2024-02-24] MEDS: SODIUM CHLORIDE 0.9% 1,000 ML 150 ML IV (19:54)
[2024-02-24 20:31] LABS: RBC Urine None Seen (0-5/HPF); Urine Volume 10mL (spun)
[2024-02-24 20:32] LABS: Bacteria Urine Occasional (0-1); Culture Indicated Urine Cult Not Indicated; Squamous Epithelial Cell Urine 0-1 /HPF (0-5/HPF); WBC Urine 0-1/HPF (0-5/HPF)
[2024-02-24] MEDS: SODIUM CHLORIDE 0.9% 1,000 ML 100 ML IV (21:00)
[2024-02-24] MEDS: ACETAMINOPHEN 325 MG TABLET 650 MG PO (22:34)
[2024-02-24] MEDS: diphenhydrAMINE 25 MG TABLET 50 MG PO (22:35)
[2024-02-24 23:09] LABS: MRSA (Nasal) PCR NOT DETECTED (Not Detect)
[2024-02-25] VITALS (20 sets, daily range): BP systolic 85–129; BP diastolic 49–60; PULSE 66–76; RESP 14–38; TEMP 36.5–38.1; O2SAT 91–98
--- NOTE | 2024-02-25 04:43 | PC.NURSE ---
Arrived from the ED where she received a first dose of vancomycin. Pt was flushed with a hot red rash across chest and back along with a new temp of 101.3c - Dr. Krause notified of possible allergic reaction to vanco and antiobiotics were switched to clindamycin. Pt was given tylenol and benadryl with good response. Dressing on R richardson changed, leg red, swollen, and warm to touch.
[2024-02-25 05:02] LABS: Hematocrit 32.5 % (36-46); Mean Corpuscular HGB Conc 33.9 % (30-36); Mean Corpuscular Hemoglobin 30.1 PG (26-34); Mean Corpuscular Volume 88.8 fL (80-100); Platelet Count 130 X10^3/uL (150-400); Red Blood Cell Count 3.66 X10^6/uL (4.0-5.2); Red Cell Distribution Width 15.9 % (11.6-14.8); White Blood Cell Count 9.6 X10^3/uL (4.5-11.0)
[2024-02-25 05:08] LABS: Add Manual Diff / Slide Review YES
[2024-02-25 05:11] LABS: Alanine Aminotransferase 26 IU/L (<35); Albumin 2.9 g/dL (3.5-5.0); Albumin Globulin Ratio 1.1 (1.0-2.8); Alkaline Phosphatase 58 U/L (38-126); Aspartate Aminotransferase 31 IU/L (14-36); BUN Creatinine Ratio 16.7 (6-22); Bilirubin Total 0.5 mg/dL (0.2-1.3); Blood Urea Nitrogen 15 mg/dL (7-17); Calcium 7.2 mg/dL (8.4-10.2); Carbon Dioxide 17 mmol/L (22-32); Chloride 111 mmol/L (98-107); Estimated Glomerular Filt Rate > 60 mL/min (>60); Globulin 2.6 g/dL (1.7-4.1); Glucose 85 mg/dL (80-110); HEMOLYSIS < 15 (0-50); Potassium 3.5 mmol/L (3.4-5.1); Sodium 134 mmol/L (137-145); Total Protein 5.5 g/dL (6.3-8.2)
[2024-02-25 05:28] LABS: Neutrophils Absolute Manual 8448 /uL (3000-5900); Total Cells Counted 100
[2024-02-25 05:29] LABS: RBC Morphology Normal Morphology
[2024-02-25] MEDS: SODIUM CHLORIDE 0.9% 1,000 ML 100 ML IV ×2 (05:42→16:34)
[2024-02-25] MEDS: LEVOTHYROXINE 75 MCG TABLET PO (07:49)
[2024-02-25] MEDS: AMLODIPINE 5 MG TABLET PO (09:19)
[2024-02-25] MEDS: ENOXAPARIN 40 MG/0.4 ML SYRINGE SUBCUT (09:19)
--- NOTE | 2024-02-25 11:29 | CM.DANOTE ---
Initial DCP Assessment Note Pt is a 78 yo female, resident of [facility] with LE cellulitis, presents with persistent fever, weakness, LE redness/swelling. PCP: Alcides Krause Payer: [facility]/[place] Reviewed chart, met w/patient to introduce self and role. Patient reports she is indp in ADLs although recently has found them more difficult since she has not felt well. No hx of HH or SNF. Patient's 90 yo spouse was admitted to the hospital 02/20 and discharged yesterday 02/23, patient's sister in law is caring for spouse. Patient denies needs from this CM team, says her two daughters are nurses and her next door neighbor is a nurse and will help as needed. No barriers identified at this time to patient's safe discharge home w/family to assist; close outpatient f/u recommended. CM team will plan to follow clinical course closely in case any DC needs or concerns arise. TYE Marley Discharge Planning/Care Management CM Discharge Assessment Start: 02/25/24 11:23 Freq: Status: Active Protocol: Document 02/25/24 11:23 NABEEL (Rec: 02/25/24 11:28 NABEEL [id number]) Discharge Planning Assessment Assigned Cell Tender TYE Torres DPOA/Assigned Designee Name Carson Onofre, spouse Contact Information [phone] Advance Directives? Yes: , HC Directive Advance Directives on File Yes History Provided By Patient,Medical Record Prior Living Arrangements House Household Members spouse Type of transporation used prior to Drives own vehicle admit Independent with ADL's Yes Is patient alert and oriented? Yes Caregiver for Another Yes: Spouse Carson Comment TBD Discharge Plan Home Transportation Arrangement Family Additional Comment TBD. Will plan to follow for any DC needs or concerns that may arise.
--- NOTE | 2024-02-25 12:20 | PT.IIE ---
Surgical History (Last Reviewed 02/24/24 @ 19:13 by Digna Godinez DO) Status post cholecystectomy Status post colonoscopy Status post dilation and curettage Status post tubal ligation Physical Therapy Inpatient Evaluation/Re-Eval M1 PT/OT-IP Prior Functional Status Start: 02/25/24 10:43 Freq: NEEDED Status: Active Protocol: Document 02/25/24 11:40 MB (Rec: 02/25/24 12:20 MB [id number]) Medical Review Prior Functional Status Medical History Reviewed Yes Diet/Fluid Consistency Regular Communication WNLs Mobility and Gait I, remote fall over rollator when pushing him and injury to left richardson and MRSA and resolved, two areas of scabs, no LLE edema or erythema Activities of Daily Living and IADL's I Social History Household Members spouse Living Arrangements House Number of Floors (Floors) Two Floors Number of Stairs To Enter/Railing? Flat to enter and can stay on main level if needed Home Environment High Toilet,Tub/Shower Home Equipment Four Wheel Walker,Shower Seat with Backrest,Hand Held Shower ,Grab Bars In Shower Employment Status Retired M2 PT-IP Current Condition Start: 02/25/24 10:43 Freq: NEEDED Status: Active Protocol: Document 02/25/24 11:40 MB (Rec: 02/25/24 12:20 MB [id number]) Physical Therapy Current Condition Current Condition Evaluation Date 02/25/24 Treatment Diagnosis RLE cellulitis M3 PT-IP Subjective Start: 02/25/24 10:43 Freq: NEEDED Status: Active Protocol: Document 02/25/24 11:40 MB (Rec: 02/25/24 12:20 MB [id number]) Subjective Physical Therapy Visit Type Type Initial Evaluation Visit Start Time 11:40 Visit Stop Time 12:00 Number of DEADENER Visits 0 Physical Therapy Visit Comments Patient Comments Pt is supine and agreeable to therapy/OOB. Nsg also nearby as nsg and PT awaiting OOB orders for pt and determining if OOB appropriate, which it is, and pt hoping to try restroom, so PT/nsg team effort Therapy Pain Assessment Pain When Pain Assessed At Rest Pain Present Pain Present Denied Pain M4 PT-IP Mobility and Gait Start: 02/25/24 10:43 Freq: NEEDED Status: Active Protocol: Document 02/25/24 11:40 MB (Rec: 02/25/24 12:20 MB [id number]) PT-Bed Mobility Assessment Rolling Level of Assist Standby Assistance Supine to Sit Supine to Sit Standby Assistance,Head of Bed Elevated Scooting Scooting to Edge of Bed Standby Assistance Scooting Up and Down in Bed Standby Assistance PT-Transfer Assessment Sit to and From Stand Sit to and from Stand Contact Guard Assistance,1 Person Assistance,Use of Upper Extremities Equipment Transfer Assistive Device Gait Belt,Front Wheeled Walker Orthotic/Prosthetic Devices or Brace: No Transfers Transfer Destination Toilet Transfer Technique Ambulation Gait Assessment Gait Gait Assistance Required: Contact Guard Assist Distance (Feet) 20 Able to Maintain Weight Bearing Status Yes During Gait Assistive Devices Assistive Device Gait Belt,Front Wheeled Walker Orthotic/Prosthetic Devices or Brace: No Gait Deviations General Gait Pattern Decreased Stride Length, Decreased Feet Clearance, Flexed Trunk,Step-to Gait,Wide Based Gait Factors Limiting Gait Function Factors Limiting Gait Function Decreased Activity Tolerance, Poor Balance PT-Balance Assessment Sitting Balance and Reactions Static Sitting Balance Ability Good Dynamic Sitting Balance Ability Good Standing Balance and Reactions Static Standing Balance Ability Good Dynamic Standing Balance Ability Fair Device Used RW M5 PT-IP Objective Assessments Start: 02/25/24 10:43 Freq: NEEDED Status: Active Protocol: Document 02/25/24 11:40 MB (Rec: 02/25/24 12:20 [id number]) Orientation Orientation/Cognition Level of Alertness Alert Orientation Name,Age,Birthday,Month,Date, Year,Day of Week,Place, Situation Language Function Ability No Deficits Noted Safety Awareness Decreased Safety Awareness Memory Description No Deficits Noted Gross Range of Motion Upper Extremity ROM Assessment Within Functional Limits Lower Extremity ROM Assessment Within Functional Limits Strength Upper Extremity Strength Assessment Within Functional Limits Lower Extremity Strength Assessment Within Functional Limits Comments Strength Comments Right distal LE with dressing around lower richardson and increased erythema and edema RLE Sensation Assessment Sensation Gross Sensation WNL Muscle Tone Muscle Tone WNL Yes M6 PT-IP Treatment Start: 02/25/24 10:43 Freq: NEEDED Status: Active Protocol: Document 02/25/24 11:40 MB (Rec: 02/25/24 12:20 MB [id number]) Physical Therapy Treatment Exercises Exercises Ankle Pumps Education Education Provided Safety M7 PT-IP Assessment and Plan Start: 08/15/24 10:43 Freq: NEEDED Status: Active Protocol: Document 02/25/24 11:40 MB (Rec: 02/25/24 12:20 MB [id number]) PT Summary Assessment and Plan Potential Rehabilitation Potential Good Status of Condition at Evaluation Evolving Summary Impairments Balance,Coordination,Bed Mobility,Transfers,Gait, Activity Tolerance Progress Towards Goals Progressing Toward Goals Assessment Summary Pt is a 78 y/o female presenting with right LE edema and erythema in setting of wound and cellulitis. Pt moves well for PT evaluation today. Recommend up with nsg and will advance gait and stair training if pt con't in acute setting. Goals Bed Mobility Goal Independent Transfer Goal Independent,Front Wheeled Walker Gait Goal Independent,Front Wheel Walker Gait Distance 100 Other Goals Pt will ascend 6 steps with rail as appropriate to allow entry to second floor. Pt does not have to perform steps to get into the house and so stair training not necessary for d/c. Advance gait without AD as appropriate. Days to Meet Goals 5 Frequency of Treatment Frequency Of Treatment Once a Day Treatment Plan Physical Therapy Treatment Plan Bed Mobility Training,Transfer Training,Gait Training, Therapeutic Exercise,Balance Retraining,Discharge Planning, Hot or Cold Pack,Neuromuscular Re-ed,Coordination Retraining ,Manual Therapy Weight Bearing Status Weight Bearing Status Weight Bear as Tolerated Recommendations To Nursing Amount of Assist Needed 1 Person Assist Discharge Recommendations PT Discharge Recommendations Home with Assistance Transportation Needs at Discharge Private Vehicle
[2024-02-25] MEDS: ACETAMINOPHEN 325 MG TABLET 650 MG PO (16:29)
[2024-02-25] MEDS: OXYCODONE IR 5 MG TABLET PO (17:00)
[2024-02-25] MEDS: cefTRIAXone 1,000 MG in SODIUM CHLORIDE 0.9% 100 ML 200 MG IV (17:46)
[2024-02-25 17:58] LABS: Lactate (Lactic Acid) 0.7 mmol/L (0.7-2.1)
[2024-02-25 18:11] LABS: Add Manual Diff / Slide Review NO; Basophils Absolute Auto 0 /uL (0-100); Basophils Percent Auto 0.6 % (0-2); Eosinophils Absolute Auto 200 /uL (0-450); Eosinophils Percent Auto 3.8 % (2-4); Hematocrit 28.7 % (36-46); Hemoglobin 9.8 g/dL (12.0-16.0); Lymphocytes Absolute Auto 1300 /uL (1100-4500); Lymphocytes Percent Auto 19.9 % (25-40); Mean Corpuscular HGB Conc 34.1 % (30-36); Mean Corpuscular Hemoglobin 29.7 PG (26-34); Mean Corpuscular Volume 87.3 fL (80-100); Monocytes Absolute Auto 500 /uL (0-900); Monocytes Percent Auto 8.6 % (3-14); Neutrophils Absolute Auto 4200 /uL (1500-7000); Neutrophils Percent Auto 67.1 % (50-75); Platelet Count 139 X10^3/uL (150-400); Red Blood Cell Count 3.28 X10^6/uL (4.0-5.2); Red Cell Distribution Width 15.4 % (11.6-14.8); White Blood Cell Count 6.3 X10^3/uL (4.5-11.0)
[2024-02-25] MEDS: CLINDAMYCIN 600 MG/50 ML PIGGYBACK 50 MG IV (18:27)
[2024-02-25] MEDS: IBUPROFEN 600 MG TABLET PO (18:44)
[2024-02-25] MEDS: OXYCODONE IR 10 MG TABLET PO (18:45)
[2024-02-25] MEDS: HYDROMORPHONE 0.5 MG INJ 1 MG IV (18:45)
--- NOTE | 2024-02-25 20:51 | PM.HP.1 ---
History of Present Illness History of Present Illness Date Patient Seen: 02/25/24 Time Patient Seen: 09:15 Chief complaint: DX Cellulitis yest. Increase weakness, fever Narrative: CC: L leg infection Pleasant 76yo F pt of Dr. Roberson with hx of hypertension and hypothyroidism and dyslipidemia, presents with redness swelling ulceration area on the anterior richardson of right leg to ED and complaint of chills weakness and some fevers at home abscess did drain in the ED was getting Bactrim outpatient when she started having chills history of allergies to penicillin and tetracycline receive vancomycin in ED and had widespread erythematous skin reaction so stopped that and orders for clindamycin were placed instead. She reports normal hunger normal GI function normal breathing. She can bear weight on the leg but it hurts to walk [facility] Surgical History Status post dilation and curettage Status post tubal ligation Status post cholecystectomy Status post colonoscopy Family History Sister Hypertension High cholesterol Social History household members: spouse Smoking Status: Former smoker alcohol intake: current Meds Home Medications and Allergies Home Medications Medication Instructions Recorded Confirmed Type atorvastatin 20 mg tablet (Lipitor) 20 mg PO HS #90 tabs 10/07/17 02/24/24 Rx levothyroxine 75 mcg tablet 0.075 mg PO QAM #90 tabs 10/07/17 02/24/24 Rx (Synthroid) amlodipine 5 mg tablet 5 mg PO DAILY 01/30/24 02/24/24 History mupirocin 2 % topical ointment 1 applic topical TID #30 grams 01/30/24 02/24/24 Rx sulfamethoxazole 800 1 tab PO Q12H #14 tabs 02/23/24 02/24/24 Rx mg-trimethoprim 160 mg tablet (Bactrim DS) ketoconazole 2 % shampoo 1 applic topical 2XW PRN Itching 02/24/24 02/24/24 History omeprazole 20 mg capsule,delayed 20 mg PO DAILY 02/24/24 02/24/24 History release Allergies Allergy/AdvReac Type Severity Reaction Status Date / Time Penicillins [PENICILLINS] Allergy Severe ANGIOEDEMA Verified 02/25/24 16:35 Tetracyclines [TETRACYCLINES] Allergy Severe ANGIOEDEMA Verified 02/25/24 16:35 vancomycin Allergy Mild Rash Verified 02/24/24 21:51 Review of Systems Review of Systems Narrative: All systems were reviewed and negative except as otherwise documented in HPI Exam Vital Signs (past 8 hours): - 02/25/24 16:00 02/25/24 16:29 02/25/24 17:00 Temperature 99.5 F 99.5 F 100.5 F H Pulse Rate 73 Respiratory Rate 20 Blood Pressure 129/60 Pulse Oximetry 94 Oxygen Flow Rate 02/25/24 17:33 02/25/24 17:34 02/25/24 18:36 Temperature 100.3 F H 100.3 F H 99.0 F Pulse Rate Respiratory Rate Blood Pressure Pulse Oximetry Oxygen Flow Rate 02/25/24 19:40 Temperature 97.9 F Pulse Rate 68 Respiratory Rate 23 Blood Pressure 97/52 L Pulse Oximetry 91 Oxygen Flow Rate 0 Oxygen Delivery Method Room Air Oxygen Flow Rate 0 Narrative Exam Narrative: Alert sitting upright in bed Const Other: Well-developed well-nourished Resp Other: Moving air well bilaterally clear to auscultation Cardio Other: Regular rate S1-S2 GI Other: Soft nontender nondistended active bowel sounds Skin Other: Erythematous swollen anterior right richardson distal neurovascular intact Neuro Other: Alert awake and oriented x3 Extrem Other: Moving all extremities normal left leg Objective Labs 02/25/24 17:40 02/25/24 04:17 Labs: Laboratory Results - last 24 hr 02/24/24 02/25/24 02/25/24 21:04 04:17 17:40 WBC 9.6 6.3 RBC 3.66 L 3.28 L Hgb 11.0 L 9.8 L Hct 32.5 L 28.7 L MCV 88.8 87.3 MCH 30.1 29.7 MCHC 33.9 34.1 RDW 15.9 H 15.4 H Plt Count 130 L 139 L Neut % (Auto) Not Reportable 67.1 D Lymph % (Auto) Not Reportable 19.9 L [place] % (Auto) Not Reportable 8.6 Eos % (Auto) Not Reportable 3.8 Baso % (Auto) Not Reportable 0.6 Neut # (Auto) 4200 Lymph # (Auto) Not Reportable 1300 [place] # (Auto) Not Reportable 500 Eos # (Auto) 200 Baso # (Auto) Not Reportable 0 Total Counted 100 Seg Neutrophils % 88.0 H Lymphocytes % (Manual) 9.0 L Monocytes % (Manual) 2.0 Eosinophils % (Manual) 1.0 L Neutrophils # (Manual) 8448 H RBC Morphology Normal morphology Sodium 134 L Potassium 3.5 Chloride 111 H Carbon Dioxide 17 L BUN 15 Creatinine 0.90 Estimated GFR > 60 BUN/Creatinine Ratio 16.7 Glucose 85 Lactate 0.7 Calcium 7.2 L Total Bilirubin 0.5 AST 31 ALT 26 Alkaline Phosphatase 58 Total Protein 5.5 L Albumin 2.9 L Globulin 2.6 Albumin/Globulin Ratio 1.1 Nasal Screen MRSA (PCR) Not detected Assessment & Plan Assessment & Plan narrative: #cellulitis of R lower extremity failed outpt po batrim, initially treated with vancomycin in ED but by later this afternoon was starting to have fevers and chills and swelling in the leg again so clindamycin was given early converted to IV that seems to be doing ok will continue that. #vancomycin reaction seems to be fading with some benadryl, doing ok since switching to clindamycin, monitor #primary hypertension stable BP continue home regimen #hypothyroid stable continue home regimen Dispo: admit for iv abx PCP: IFP code: full mdm: Time-Based Coding :: [TOTAL MINUTES] spent with patient and on the chart (including review of chart, obtaining history, exam, reviewing outside data, placing orders, documenting exam and treatment plan, and counseling patient) on [DATE]. Quality VTE Deep Vein Thrombosis/Pulmonary Embolism Present on Admission: No
[2024-02-26] VITALS (49 sets, daily range): BP systolic 95–161; BP diastolic 50–74; PULSE 54–84; RESP 16–38; TEMP 36.6–36.9; O2SAT 87–99
[2024-02-26] MEDS: CLINDAMYCIN 600 MG/50 ML PIGGYBACK 50 MG IV ×3 (02:05→17:06)
[2024-02-26] MEDS: SODIUM CHLORIDE 0.9% 1,000 ML 100 ML IV (02:09)
[2024-02-26] MEDS: LEVOTHYROXINE 75 MCG TABLET PO (06:24)
--- NOTE | 2024-02-26 07:49 | P.PN_ITS ---
Subjective Subjective Interval history: Patient feeling slightly better. Strength is better. Able to walk to the bathroom this morning. No other significant change or complaint. Exam Vital Signs (past 8 hours): - 02/26/24 03:27 Temperature 97.8 F Pulse Rate 65 Respiratory Rate 23 Blood Pressure 100/55 L Pulse Oximetry 92 Oxygen Flow Rate 1 Oxygen Delivery Method Room Air Oxygen Flow Rate 1 Narrative Exam Narrative: Alert elderly female mildly fatigued no acute distress Lungs are clear heart is regular rate and rhythm right leg decreased erythema no warmth to palpation does have some slight discharge from central core of lesion. But no continued abscess. Objective Labs 02/25/24 17:40 02/25/24 04:17 Labs: Laboratory Results - last 24 hr 02/25/24 17:40 WBC 6.3 RBC 3.28 L Hgb 9.8 L Hct 28.7 L MCV 87.3 MCH 29.7 MCHC 34.1 RDW 15.4 H Plt Count 139 L Neut % (Auto) 67.1 D Lymph % (Auto) 19.9 L [place] % (Auto) 8.6 Eos % (Auto) 3.8 Baso % (Auto) 0.6 Neut # (Auto) 4200 Lymph # (Auto) 1300 [place] # (Auto) 500 Eos # (Auto) 200 Baso # (Auto) 0 Lactate 0.7 PFSH Surgical History Status post dilation and curettage Status post tubal ligation Status post cholecystectomy Status post colonoscopy Family History Sister Hypertension High cholesterol Social History household members: spouse Smoking Status: Former smoker alcohol intake: current Assessment & Plan Assessment & Plan narrative: Cellulitis. Right lower leg. With abscess. Seems improved. Clinically feeling better. Although still not great. Strength is better. Blood pressure is stable. White count is improved. Cultures are negative. Discussed treatment options. Will continue IV antibiotics for 24 more hours. Hopefully she will be feeling quite a bit better tomorrow we can discharge with oral antibiotics. If not will switch to oral and watch 24 hours. Patient understands. Questions answered. Seems to be doing well on clindamycin. Dehydration. Improved. Will discontinue IV hydration today she is taking orals well and re-evaluate tomorrow. Anemia. Somewhat new. We discussed this. Probable hemodilution. We will discontinue IV therapy today. And rechecked tomorrow. If lower workup more aggressively at that time Hypertension. Stable. Continue usual meds. Hypothyroidism. Continue usual meds. DVT prophylaxis on treatment. GI prophylaxis not needed. Code status full. Disposition. Hopefully will be discharged tomorrow on oral clindamycin. But will see how the day goes. Time-Based Coding :: [TOTAL MINUTES] spent with patient and on the chart (including review of chart, obtaining history, exam, reviewing outside data, placing orders, documenting exam and treatment plan, and counseling patient) on [DATE]. Quality VTE Deep Vein Thrombosis/Pulmonary Embolism Present on Admission: No
[2024-02-26] MEDS: AMLODIPINE 5 MG TABLET PO (09:26)
[2024-02-26] MEDS: ENOXAPARIN 40 MG/0.4 ML SYRINGE SUBCUT (09:26)
--- NOTE | 2024-02-26 11:35 | PT.IPTN ---
Current Diagnoses Cellulitis of right lower limb (02/24/24) Physical Therapy Treatment Note M2 PT-IP Current Condition Start: 02/25/24 10:43 Freq: NEEDED Status: Active Protocol: Document 02/25/24 11:40 MB (Rec: 02/25/24 12:20 MB [id number]) Physical Therapy Current Condition Current Condition Evaluation Date 02/25/24 Treatment Diagnosis RLE cellulitis M3 PT-IP Subjective Start: 02/25/24 10:43 Freq: NEEDED Status: Active Protocol: Document 02/26/24 11:35 AB (Rec: 02/26/24 13:55 AB [id number]) Subjective Physical Therapy Visit Type Type Treatment Note Visit Start Time 11:35 Visit Stop Time 11:55 Number of LOST AND FOUND CLERK Visits 0 Physical Therapy Visit Comments Patient Comments agreeable to do PT M4 PT-IP Mobility and Gait Start: 02/25/24 10:43 Freq: NEEDED Status: Active Protocol: Document 02/26/24 11:35 AB (Rec: 02/26/24 13:55 AB [id number]) PT-Bed Mobility Assessment Supine to Sit Supine to Sit Independent Sit to Supine Sit to Supine Independent PT-Transfer Assessment Sit to and From Stand Sit to and from Stand Standby Assistance Equipment Transfer Assistive Device None,Gait Belt Orthotic/Prosthetic Devices or Brace: No Transfers Transfer Destination Bed,Chair Transfer Technique ambulated Transfer Ability Level of Assist Standby Assistance,1 Person Assistance,Use of Upper Extremities Comments Mobility Comments pt sitting by window bench and agreeable to do PT. stated that she has been moving in her room independently. pt does not use any AD prior to admission but stated that she feels steadier with FWW and wants to continue using a FWW. pt has a FWW she can use at home. Assessed ambulation without AD . pt completed sit to stand SBA and ambulated in room without AD sBA. slow guarded gait but without AD. pt sat on EOB and completed bed mobility modified independent. pt agreed to ambulate more. completed sit to stand from EOB SBA and ambulated in the hallway using fWW SBA ~ 150ft. pt ambulated back to her room and sat back on window bench. informed pt that she can ambulate using a FWW independently in room but ask nurse assistance for hallway ambulation for safety. pt understood. informed pt that no further PT needs at this time and agreed. informed nurse that PT is going to d/c and for nurse to ambulate pt. Gait Assessment Gait Gait Assistance Required: Standby Assistance,1 Person Assist Distance (Feet) 150 Able to Maintain Weight Bearing Status Yes During Gait Assistive Devices Assistive Device None,Gait Belt,Front Wheeled Walker Orthotic/Prosthetic Devices or Brace: No Gait Deviations General Gait Pattern Decreased Stride Length, Decreased Feet Clearance Factors Limiting Gait Function Factors Limiting Gait Function Decreased Activity Tolerance, Decreased Strength,Pain M5 PT-IP Objective Assessments Start: 02/25/24 10:43 Freq: NEEDED Status: Active Protocol: Document 02/25/24 11:40 MB (Rec: 02/25/24 12:20 MB [id number]) Orientation Orientation/Cognition Level of Alertness Alert Orientation Name,Age,Birthday,Month,Date, Year,Day of Week,Place, Situation Language Function Ability No Deficits Noted Safety Awareness Decreased Safety Awareness Memory Description No Deficits Noted Gross Range of Motion Upper Extremity ROM Assessment Within Functional Limits Lower Extremity ROM Assessment Within Functional Limits Strength Upper Extremity Strength Assessment Within Functional Limits Lower Extremity Strength Assessment Within Functional Limits Comments Strength Comments Right distal LE with dressing around lower richardson and increased erythema and edema RLE Sensation Assessment Sensation Gross Sensation WNL Muscle Tone Muscle Tone WNL Yes M6 PT-IP Treatment Start: 02/25/24 10:43 Freq: NEEDED Status: Active Protocol: Document 02/26/24 11:35 AB (Rec: 02/26/24 13:55 AB [id number]) Physical Therapy Treatment Education Education Provided Safety M7 PT-IP Assessment and Plan Start: 02/25/24 10:43 Freq: NEEDED Status: Active Protocol: Document 02/26/24 11:35 AB (Rec: 02/26/24 13:55 AB [id number]) PT Summary Assessment and Plan Potential Rehabilitation Potential Good Summary Impairments Pain,Strength,Balance, Sensation,Bed Mobility, Transfers,Gait,Activity Tolerance Progress Towards Goals Progressing Toward Goals Assessment Summary pt is progressing well with mobility and requiring SBA with ambulation ~ 150 ft using a FWW. pt can be independent with ambulation in room using a fWW. pt is modified independent with bed mobility as well. pt prefers usign a FWW at this time and has one at home. no further PT needs at this time. Goals Bed Mobility Goal Independent Transfer Goal Independent,Front Wheeled Walker Gait Goal Independent,Front Wheel Walker Gait Distance 100 Other Goals Pt will ascend 6 steps with rail as appropriate to allow entry to second floor. Pt does not have to perform steps to get into the house and so stair training not necessary for d/c. Advance gait without AD as appropriate. Days to Meet Goals 5 Frequency of Treatment Frequency Of Treatment Discharge Treatment Plan Physical Therapy Treatment Plan Bed Mobility Training,Transfer Training,Gait Training, Therapeutic Exercise,Balance Retraining,Discharge Planning, Hot or Cold Pack,Neuromuscular Re-ed,Coordination Retraining ,Manual Therapy Recommendations To Nursing Amount of Assist Needed Standby Assistance Discharge Recommendations PT Discharge Recommendations Home with Assistance Transportation Needs at Discharge Private Vehicle
--- NOTE | 2024-02-26 18:22 | PC.NURSE ---
pt has had an uneventful shift; she has been up in the chair and amb to BR ad amando; right richardson wound culture sent and dressing changed
[2024-02-26] MEDS: ACETAMINOPHEN 325 MG TABLET 650 MG PO (21:20)
[2024-02-27] MEDS: CLINDAMYCIN 600 MG/50 ML PIGGYBACK 50 MG IV ×2 (01:16→09:01)
[2024-02-27 04:36] LABS: Add Manual Diff / Slide Review NO; Basophils Absolute Auto 0 /uL (0-100); Basophils Percent Auto 0.9 % (0-2); Eosinophils Absolute Auto 200 /uL (0-450); Eosinophils Percent Auto 4.4 % (2-4); Hematocrit 28.5 % (36-46); Hemoglobin 9.5 g/dL (12.0-16.0); Lymphocytes Absolute Auto 1700 /uL (1100-4500); Lymphocytes Percent Auto 47.8 % (25-40); Mean Corpuscular HGB Conc 33.4 % (30-36); Mean Corpuscular Hemoglobin 29.1 PG (26-34); Mean Corpuscular Volume 87.3 fL (80-100); Monocytes Absolute Auto 400 /uL (0-900); Monocytes Percent Auto 12.1 % (3-14); Neutrophils Absolute Auto 1200 /uL (1500-7000); Neutrophils Percent Auto 34.8 % (50-75); Platelet Count 163 X10^3/uL (150-400); Red Blood Cell Count 3.27 X10^6/uL (4.0-5.2); Red Cell Distribution Width 15.8 % (11.6-14.8); White Blood Cell Count 3.5 X10^3/uL (4.5-11.0)
[2024-02-27 04:48] VITALS: BP 115/61; PULSE 59; RESP 16; TEMP 36.7; O2SAT 96
[2024-02-27 05:02] LABS: Alanine Aminotransferase 41 IU/L (<35); Albumin 2.8 g/dL (3.5-5.0); Alkaline Phosphatase 64 U/L (38-126); Aspartate Aminotransferase 36 IU/L (14-36); BUN Creatinine Ratio 11.9 (6-22); Bilirubin Total 0.3 mg/dL (0.2-1.3); Blood Urea Nitrogen 8 mg/dL (7-17); Calcium 7.8 mg/dL (8.4-10.2); Carbon Dioxide 22 mmol/L (22-32); Chloride 114 mmol/L (98-107); Estimated Glomerular Filt Rate > 60 mL/min (>60); Globulin 2.8 g/dL (1.7-4.1); Glucose 87 mg/dL (80-110); HEMOLYSIS < 15 (0-50); Potassium 3.3 mmol/L (3.4-5.1); Sodium 139 mmol/L (137-145); Total Protein 5.6 g/dL (6.3-8.2)
[2024-02-27 08:00] VITALS: BP 163/69; PULSE 55; RESP 16; TEMP 36.6; O2SAT 98
[2024-02-27] MEDS: LEVOTHYROXINE 75 MCG TABLET PO (08:05)
[2024-02-27] MEDS: ENOXAPARIN 40 MG/0.4 ML SYRINGE SUBCUT (09:01)
[2024-02-27] MEDS: AMLODIPINE 5 MG TABLET PO (09:01)
[2024-02-27] MEDS: POTASSIUM CHLORIDE 20 MEQ TAB 40 MEQ PO (09:01)
--- NOTE | 2024-02-27 10:25 | P.DS_ITS ---
History of Present Illness History of Present Illness Date Patient Seen: 02/27/24 Time Patient Seen: 10:25 Date of Onset of Symptoms: 02/18/24 Chief complaint: DX Cellulitis yest. Increase weakness, fever Narrative: Pleasant 76yo F pt of Dr. Roberson with hx of hypertension and hypothyroidism and dyslipidemia, presents with redness swelling ulceration area on the anterior richardson of right leg to ED and complaint of chills weakness and some fevers at home abscess did drain in the ED was getting Bactrim outpatient when she started having chills history of allergies to penicillin and tetracycline receive vancomycin in ED and had widespread erythematous skin reaction so stopped that and orders for clindamycin were placed instead. She reports normal hunger normal GI function normal breathing. She can bear weight on the leg but it hurts to walk Discharge Providers Provider Date of admission: 02/24/24 19:27 Discharge Date: 02/27/24 Primary care physician: Alcides Krause MD Consults: 02/25/24 09:31 Consult to Physical Therapy Evaluate & Treat Comment: Physician Instructions: Evaluate and Treat Discharge provider: Alcides Krause MD Summary Hospital Course Discharge Diagnosis: Cellulitis right leg Sepsis syndrome with tachypnea hypotension elevated white count Dehydration Anemia Hypotension Hypothyroidism Hospital Course: Sepsis syndrome. Patient presented tachycardic hypotensive elevated white count. Grover to be secondary to cellulitis in her right leg. Certainly worsening after her evaluation in the 24 hours prior to admission. Patient was aggressively hydrated. Antibiotics were started initially with vanco and then switched to clindamycin. Patient within 24 hours was feeling better but still did not have her strength back. There was no other significant change. She at 48 hours was feeling markedly better could walk to the bathroom and was still not to herself but was feeling better and on discharge she was 90% back to herself. Patient will be followed as an outpatient. Cellulitis. Grover to be cause of sepsis. Patient was started on vancomycin for concern for MRSA which cultures remain negative. She developed a rash within 12 hours and was started on clindamycin. Vancomycin was discontinued. Her white count improved. She had no further fevers. Her energy improved. Erythema seemed to improve she was still draining some from the wound on her leg but otherwise was continuing to improve and felt like she could go home. She will be discharged to home on 10 days of clindamycin with acidophilus and probiotics. She will be followed up in 2-3 days in the clinic. Dehydration. Mild to moderate. Aggressively hydrated over the 1st 48 hours and then discontinued she is doing well taking over as well in his euvolemic. Anemia. Grover to be secondary to hydration. Will be followed as an outpatient. Hypertension after initial hypotension has done well usual meds will be followed as outpatient. Hypothyroidism stable. No change in meds. Exam Vital Signs (past 8 hours): - 02/27/24 04:48 02/27/24 08:00 02/27/24 08:00 Temperature 98.0 F 97.9 F Pulse Rate 59 L 55 L Respiratory Rate 16 16 Blood Pressure 115/61 163/69 H Pulse Oximetry 96 98 98 Oxygen Delivery Method Room Air Oxygen Flow Rate 0 Oxygen Delivery Method Room Air Oxygen Flow Rate 0 Narrative Exam Narrative: Alert female much less fatigued no acute distress Lungs are clear heart is regular rate and rhythm right leg shows some slight swelling. Down to the mid foot to mid ankle she is erythema is markedly improved she has not warm to the touch. Still has mild wound 1 cm on chin. Objective Labs 02/27/24 04:20 02/27/24 04:20 Labs: Laboratory Results - last 24 hr 02/27/24 04:20 WBC 3.5 L RBC 3.27 L Hgb 9.5 L Hct 28.5 L MCV 87.3 MCH 29.1 MCHC 33.4 RDW 15.8 H Plt Count 163 Neut % (Auto) 34.8 L D Lymph % (Auto) 47.8 H D [place] % (Auto) 12.1 Eos % (Auto) 4.4 H Baso % (Auto) 0.9 Neut # (Auto) 1200 L Lymph # (Auto) 1700 [place] # (Auto) 400 Eos # (Auto) 200 Baso # (Auto) 0 Sodium 139 Potassium 3.3 L Chloride 114 H Carbon Dioxide 22 BUN 8 Creatinine 0.67 Estimated GFR > 60 BUN/Creatinine Ratio 11.9 Glucose 87 Calcium 7.8 L Total Bilirubin 0.3 AST 36 ALT 41 H Alkaline Phosphatase 64 Total Protein 5.6 L Albumin 2.8 L Globulin 2.8 Albumin/Globulin Ratio 1.0 PFSH Surgical History Status post dilation and curettage Status post tubal ligation Status post cholecystectomy Status post colonoscopy Family History Sister Hypertension High cholesterol Social History household members: spouse Smoking Status: Former smoker alcohol intake: current Discharge Assessment & Plan Assessment and Plan Assessment: Improved Plan of Treatment: Discharge home Discharge Plan Discharge Plan Patient Disposition: Home Provider Discharge Comment: Patient to continue oral antibiotics. She is to take acidophilus or probiotics to prevent antibiotic associated diarrhea Discharge orders & Medications Prescriptions: New clindamycin HCl 300 mg capsule 300 mg PO TID Qty: 30 0RF Continued amlodipine 5 mg tablet 5 mg PO DAILY mupirocin 2 % ointment 1 applic topical TID Qty: 30 0RF atorvastatin [Lipitor] 20 MG tablet 20 mg PO HS Qty: 90 3RF levothyroxine [Synthroid] 75 MCG tablet 0.075 mg PO QAM Qty: 90 3RF ketoconazole 2 % shampoo 1 applic topical 2XW PRN (Reason: Itching) Patient Comments: uses when she feels the need omeprazole 20 mg capsule,delayed release(DR/EC) 20 mg PO DAILY Discontinued sulfamethoxazole-trimethoprim [Bactrim DS] 800-160 mg tablet 1 tab PO Q12H Qty: 14 0RF Follow up/Referrals: Alcides Krause MD [Primary Care Provider] - 03/01/24 (Call Thursday for appointment on Thursday or Thursday) Activity Restrictions/Additional Instructions: Patient should elevate leg. Rest. Discharge Health Status Multidrug resistant organism: No MDRO Diet/Activity/Treatments Diet: Diet as Tolerated Activity: Patient okay to ambulate but needs to rest and elevate leg Skin/Wound/Dressing Care Report to your healthcare provider any signs of infection, such as:: chills, fever, night sweats, increased pain and unusual drainage Dressing: Patient has to clean once a day with half-strength hydrogen peroxide and water. Apply triple antibiotic of choice. Daily Visit Report/Discharge Packet Instructions: DI for Cellulitis -- Adult, How to Prevent Falls Stand Alone Forms: Patient Portal/API, Stroke Signs & Symptoms Discharge Data Primary Care Provider: Alcides Krause Quality VTE Deep Vein Thrombosis/Pulmonary Embolism Present on Admission: No
--- NOTE | 2024-02-27 11:03 | PC.NURSE ---
patient agreeable to discharge. IV discontinued, education provided to patient. Pt wheeled via w/c to private vehicle by PCT at approximately 1045.
== END 2024-02-27 10:45 | disposition home or self-care (01) | DRG 872 ==
LOC: ED 19:28 → AC 19:28 → ICU 20:27
PROVIDERS: Emergency Medicine; Family Medicine; Admitting Provider Family Medicine; Emergency Provider Emergency Medicine; PCP Family Medicine; Referring Provider Emergency Medicine; Visit Provider Family Medicine
DX: A41.9 Sepsis, unspecified organism (principal); L03.115 Cellulitis of right lower limb; L02.415 Cutaneous abscess of right lower limb; T36.8X5A Adverse effect of other systemic antibiotics, initial encounter; I10 Essential (primary) hypertension; E03.9 Hypothyroidism, unspecified; E86.0 Dehydration; D64.9 Anemia, unspecified; I95.9 Hypotension, unspecified; R21 Rash and other nonspecific skin eruption; E78.5 Hyperlipidemia, unspecified; Z87.891 Personal history of nicotine dependence; Z88.0 Allergy status to penicillin; Z88.8 Allergy status to other drugs, medicaments and biological substances
CPT/HCPCS: 0241U; 36415; 71045; 80053; 81003; 81015; 83605; 83690; 84145; 85007; 85025; 85610; 85730; 87040; 87070; 87075; 87205; 87797; 93005; 93010; 93971; 96361; 96365; 97116; 97161; 99283; 99284; 99285; J0696; J1170; J1650

== ENCOUNTER → 2024-07-11 10:00 | Outpatient (CLI) | payer MEDICARE, OTHER, SELFPAY ==
[2024-02-24 20:59] VITALS: BMI 22.4
--- NOTE | 2024-07-11 | DI.MG.S_ITS ---
BILATERAL DIGITAL SCREENING MAMMOGRAM 3D/2D WITH CAD: 07/11/2024 CLINICAL: Routine screening. Comparison is made to exams dated: 07/09/2022 mammogram, 07/10/2023 mammogram, and 06/17/2021 mammogram - [facility]. The breasts are heterogeneously dense, which may obscure small masses (category c / 51-75% glandular tissue). Current study was also evaluated with a Computer Aided Detection (CAD) system. No significant masses, calcifications, or other findings are seen in either breast. There has been no significant interval change. IMPRESSION: NEGATIVE There is no mammographic evidence of malignancy. A 1 year screening mammogram is recommended. Based on the Tyrer Cuzick model (a risk assessment model) the patient's lifetime risk is 3.0% and her 10 year risk is 0.0%. According to the ACR, ACS, and NCCN guidelines, an annual breast MRI exam along with mammogram is recommended if the patient's lifetime risk is 20% or greater. This exam was interpreted at Station ID: [id number]. NOTE: For mammograms, a report in lay terms will be sent to the patient. Approximately 15% of breast malignancies will not be visualized mammographically. In the management of a palpable breast mass, a negative mammogram must not discourage biopsy of a clinically suspicious lesion. Electronically Signed By: Ana boucher/shauna:07/11/2024 13:36:31 letter sent: Normal Exam ACR BI-RADS Category 1: Negative
--- NOTE | 2024-07-11 | DI.RAD.S_ITS ---
PROCEDURE: XR DEXA AXIAL SKELETON INDICATIONS: OSTEOPOROSIS COMPARISON: [facility], CR, XR DEXA AXIAL SKELETON, 03/21/2022, 12:02. [facility], CR, XR DEXA AXIAL SKELETON, 07/12/2019, 10:41. FINDINGS: Lumbar Spine: Bone mineral density 0.87 g/cm2, T score -1.3, previously -1.7. The lowest T-score is -2.0 for the L2 vertebral body. Left Hip: Bone mineral density 0.699 g/cm2, T score -2.0, previously -1.7. Left Femoral Neck: Bone mineral density 0.620 g/cm2, T score -2.1, previously -2.2. Right Hip: Bone mineral density 0.703 g/cm2, T score -2.0, previously -1.3. Right Femoral Neck: Bone mineral density 0.592 g/cm2, T score -2.3, previously -2.5. Fracture Risk Calculation (when applicable): 10-year fracture risk of a major osteoporotic fracture 15 percent and of a hip fracture 4.8 percent. (T score greater or equal to -1.0 to: NORMAL) (T score from -1.1 to -2.4: OSTEOPENIA) (T score less than or equal to -2.5: OSTEOPOROSIS) IMPRESSION: 1. Osteopenia of the lumbar spine. 2. Osteopenia of the left hip and femoral neck. 3. Osteopenia of the right hip and femoral neck, although the neck is borderline osteoporotic. Follow-up guidelines as follows: Osteoporosis: Consider a repeat DEXA and Vertebral Fracture Assessment (VFA) exam in 2 years or sooner if medically necessary, to reassess this patient's status. Osteopenia: Consider a repeat DEXA in 2-3 years to reassess this patient's status, or if there is a new clinical indication. Normal: Consider a repeat DEXA in 5 years or sooner, or if there is a new clinical indication. All treatment decisions require clinical judgment and consideration of individual patient factors, including patient preferences, comorbidities, previous drug use, risk factors not captured in the FRAX model (e.g., frailty, falls, vitamin D deficiency, increased bone turnover, interval significant decline in bone density ) and possible under- or over-estimation of fracture risk by FRAX. In addition, the NOF Guide recommends that FDA-approved medical therapies be considered in postmenopausal women and men age >= 50 years with a: * Hip or vertebral (clinical or morphometric) fracture * T-score of <=-2.5 at the spine or hip * Ten-year fracture probability by FRAX of >= 3% for hip fracture or >=20% for major osteoporotic fracture. People with diagnosed cases of osteoporosis or at high risk for fracture should have regular bone mineral density tests. For patients eligible for Medicare, routine testing is allowed once every 2 years. The testing frequency can be increased to one year for patients who have rapidly progressing disease, those who are receiving or discontinuing medical therapy to restore bone mass, or have additional risk factors. Dictated by: Rajat Andres M.D. on 07/11/2024 at 15:17 Approved by: Rajat Andres M.D. on 07/11/2024 at 15:21
== END ==
PROVIDERS: PCP Family Medicine; Referring Provider Family Medicine; Visit Provider Family Medicine
DX: Z12.31 Encounter for screening mammogram for malignant neoplasm of breast (principal); M85.89 Other specified disorders of bone density and structure, multiple sites; R92.333 Mammographic heterogeneous density, bilateral breasts
CPT/HCPCS: 77063; 77067; 77080

== ENCOUNTER → 2025-05-31 15:03 | Outpatient (CLI) | payer MEDICARE, OTHER, SELFPAY ==
[2024-02-24 20:59] VITALS: BMI 22.4
--- NOTE | 2025-05-31 15:07 | DI.RAD.S_ITS ---
PROCEDURE: XR HIP W PEL IF DONE RT 2V INDICATIONS: Right hip pain TECHNIQUE: AP pelvis with lateral view(s) of the right hip(s). COMPARISON: None. FINDINGS: Bones: No fractures or dislocations. [id number] bilateral hip joint osteoarthritic changes are seen slightly worse on the right side. No evidence of avascular necrosis of femoral head. Pelvic ring appears intact. No suspicious bony lesions. Soft tissues: The visualized bowel gas pattern is normal. No suspicious soft tissue calcifications. IMPRESSION: No acute pelvic or hip fracture. [id number] bilateral hip joint osteoarthritis as above. No evidence of avascular necrosis. Dictated by: Sriram Lucas M.D. on 06/01/2025 at 19:38 Approved by: Sriram Lucas M.D. on 06/01/2025 at 19:38
== END ==
PROVIDERS: PCP Family Medicine; Referring Provider Family Medicine; Visit Provider Family Medicine
DX: M16.11 Unilateral primary osteoarthritis, right hip (principal); M25.551 Pain in right hip
CPT/HCPCS: 73502